=== PATIENT | female | born 1970 | race Caucasian/White ===

== ENCOUNTER 2018-04-28 10:30 | Outpatient (RCR) | payer BC, SELFPAY ==
--- NOTE | 2018-04-19 15:00 | PTTR_ITS ---
DATE: April 19, 2018 SUBJECTIVE: Mita reports that her symptoms come and go. She can not seem to find an aggravator. She reports that a lot of walking does seem to bother. She notes that she went to [employer] last week and by the end of the day she was hobbling. She has been trying to stay compliant with her stretches and HEP however leaves it to the end of day and sometimes just doesn't get it in. OBJECTIVE: Manual therapy: ([id number]). Soft tissue stretching of the right hamstring, ITB , piriformis. Soft tissue mobilization throughout the lateral ITB distal to proximal. CFM to the greater trochanter. TPR to the piriformis and glut med in right side lying position. Good symptom reduction post session. Reviewed home exercise program to ensure proper technique. Also emphasized importance of daily stretching and holding each stretch up to a minute. Recommended use of a foam roller for self mobilization or a rolling pin. Declined need of modality post session. Will reassess one time next week. Will continue with manual mobilization and continue progression of stabilization within symptom allowance. Utilize modalities as needed for pain reduction. Direct treatment time: 30 minutes Total treatment time: 30 minutes
--- NOTE | 2018-04-28 10:30 | PTTR_ITS ---
DATE: April 28, 2018 SUBJECTIVE: Mita reports that she continues to have her ups and downs. She notes that at times she has no irritation at all and others it bothers her so much that she is limping. Has been holding her stretches longer. She has been doing more self massage as recommended at last session. She remains compliant with her HEP and overall feels that she is improving just can't wait for it to be gone. OBJECTIVE: Manual therapy: ([id number]).Soft tissue stretching to the right ITB,piriformis, SKC, and hamstring, STM throughout the right proximal ITB, TFL and posterior capsule of the right hip with TPR to the glut med and piriformis. CFM over the greater trochanter. Reviewed HEP along with continued self mobilization techniques. Recommended monitoring sitting position to avoid constant stretch or irritation to the lateral hip. KT tape provided to the ITB I strip fashion. Will monitor her response to this. If no benefit will try the star fashion over the greater trochanter. Also issued some samples of Biofreeze to trial. Will continue with strong HEP. Reassess in 1 week. Continue with manual mobilization and modalities as needed. Declined need of modality post session. Direct treatment time: 30 minutes Total treatment time: 30 minutes
== END 2018-04-28 23:59 | disposition home or self-care (01) ==
LOC: PT 10:30
PROVIDERS: PCP Family Medicine; Referring Provider Family Medicine; Visit Provider Family Medicine
DX: M70.61 Trochanteric bursitis, right hip (principal)
CPT/HCPCS: 97140

== ENCOUNTER 2021-10-04 12:52 | Inpatient (IN) | payer BC, SELFPAY ==
[2021-10-04 12:56] VITALS: BP 142/73; PULSE 65; RESP 18; TEMP 36.3; O2SAT 100
--- NOTE | 2021-10-04 13:16 | W.ED.GENAD ---
Discharge Plan Disposition Patient Disposition: [facility] INPATIENT Condition: Serious Discharge Details Chief Complaint: Abd Prob Clinical Impression: Acute gallstone pancreatitis Primary Care Provider: Linette Kemp ED Provider: Donal Calabrese Home Meds and New Rx's Prescriptions: No Action epinephrine [EpiPen 2-Cornell] 0.3 mg/0.3 mL auto-injector 0.3 mg IM ONCE Qty: 1 RF: 2 vitamin B complex 1 EACH capsule 1 cap PO DAILY RF: 0 calcium carbonate-vitamin D3 [Calcium 500 With D] 1 EACH tablet 2 tab PO DAILY RF: 0 acidophilus-pectin, citrus [Acidophilus Probiotic] 1 EACH capsule 1 cap PO DAILY RF: 0 Medical Decision Making This is a 50-year-old female, denies significant past medical history, reports intermittent abdominal pain and nausea for the past couple of weeks and noticed itching and jaundice over the past 24 hours. Clinically she does appear jaundiced but is otherwise well-appearing. Abdomen is soft, currently nontender. She appears afebrile and hemodynamically stable. Plan is to obtain IV access, give IV fluid, obtain routine screening laboratory values including a lipase and acute panel and likely CT imaging of her abdomen pelvis with IV contrast. Differential includes but not excluded to biliary colic, acute cholecystitis, obstruction secondary to mass, gallstone pancreatitis. Laboratory values reveal no evidence of leukocytosis or anemia. Electrolytes are unremarkable, creatinine 0.7 with a GFR greater than 60. Total bili 8.8, AST 159 ALT 429 alk phosphatase 453, lipase 6727. Urine with large bilirubin, 10-20 white cells but moderate epithelials, likely contamination. Elevated LFTs and bilirubin. Awaiting CT imaging with IV contrast of her abdomen and pelvis. CT imaging reveals cholelithiasis, multiple tiny noncalcified intraluminal gallstones noted. CBD diameter of 1.3, recommending ERCP. Incidentally, recommending MRI of the right acetabulum as well. Case discussed with our surgeon, Dr. Ferrell, and because the patient requires an ERCP, recommend transfer to a higher level of care. I was able to speak with [facility] at 1443 and unfortunately they are at capacity, cannot take any admissions. They did say that a down and back ERCP tomorrow potentially could be arranged if the patient was admitted to our facility. I then reached out to [facility] at 1520, I was told that given she is hemodynamically stable, transfer is highly unlikely as they are only taking emergent cases. They did transfer me to their surgical team; however, they stated that this would be a hospitalist transfer and not to the surgical team Given [facility] has no capacity and [facility] tells me that all nonemergent transfers are extremely unlikely, I once again reached out to our surgical team, Dr. Ferrell. Given the circumstances and inability to transfer appropriately, she is agreeable to admitting to our facility under her services. She recommends initiating IV Rocephin and Flagyl. Plan is to obtain ultrasound tomorrow morning for further diagnostics, and then likely transfer or down and back if necessary tomorrow. She will place admission orders. I later received a phone call from the hospitalist service at [facility] at 1540, Dr. Ellison, she does confirm that there are no beds available today and that a down and back procedure for ERCP could potentially be set up for tomorrow. Work-up and disposition discussed with patient. She is agreeable to admission to our facility understanding that ultrasound will likely be obtained tomorrow morning and then she will likely require a transfer or down a back procedure. This documentation was generated using [employer] dictation system, please disregard any oddities of phrase or misspellings. Medical Records Medical records reviewed: Yes I reviewed the patient's medical records. Imaging Data Radiologic Study: Attestation: I personally reviewed and interpreted this imaging study as follows: Imaging: CT Scan Radiologist's impression: Exam(s) a CT:CT abdomen & pelvis w Exam(s) CT ABDOMEN PELVIS W EXAM: CT ABDOMEN PELVIS W CLINICAL HISTORY: abd pain, jaundiced, elevatd lfts and bili of 8.8. TECHNIQUE: Imaging Protocol: Axial computed tomography images with coronal and sagittal reformatted images were created and reviewed CONTRAST MATERIAL: Intravenous: Omnipaque 100cc Oral: None COMPARISON: No exams were available for comparison FINDINGS: VISUALIZED LUNG BASES: No nodules nor pleural effusions evident. ABDOMEN: There is no ascites. LIVER: There are no focal hepatic lesions but there are dilated intrahepatic ducts in both right and left hepatic lobes. CBD is also dilated to diameter of 1.3 cm. GALLBLADDER/BILIARY: Multiple tiny noncalcified gallstones are noted in the gallbladder lumen and the gallbladder is distended to 10 cm by 3.7 cm by 3.6 cm. There is minimal gallbladder wall edema. No prominent pericholecystic fluid. PANCREAS: Pancreatic duct is not dilated. Very subtle hypodensity at the junction of pancreatic head and duodenum which is probably inflammatory; less likely mass at this level SPLEEN: Spleen is not enlarged. No obvious intrasplenic lesions. Splenic and portal veins are patent. ADRENALS: There are no significant adrenal masses. KIDNEYS:No cysts evident. No solid renal masses. No calculi nor hydronephrosis.. ABDOMINAL AORTA: Abdominal aorta is not enlarged. LYMPH NODES:There is no retroperitoneal nor paraaortic adenopathy. ABDOMINAL WALL: No evidence of significant anterior abdominal wall nor inguinal hernia. GI: There is no evidence of bowel obstruction, free air, nor abscess. PELVIS: GI: No evidence of appendicitis.No evidence of sigmoid diverticulitis. LYMPH NODES: There is no intrapelvic nor inguinal adenopathy. REPRODUCTIVE: Uterus is retroverted. Somewhat heterogeneous which may reflect the presence of fibroids. No abnormal adnexal masses. No free fluid in the pelvis URINARY BLADDER: No calculi nor obvious masses evident OSSEOUS: There is a bone lesion in the superior acetabulum of the right hip which measures 2 by 1.7 cm by 3 cm AP and associated with significant thinning of the cortex. Somewhat unlikely that this would be a typical degenerative subarticular cyst given its size and the fact that there is minimal if any significant degenerative change in the ipsilateral hip joint. Follow-up MRI recommended. IMPRESSION: 1. Cholelithiasis. Multiple tiny noncalcified intraluminal gallstones noted. The gallbladder as well as the entire biliary tree is dilated, both intra and extrahepatic with the CBD exhibiting diameter of 1.3 cm. There are probably tiny calculi in the lower CBD causing the obstruction, however, these are not radiopaque/calcified. ERCP recommended. 2. Incidental finding in the right hip acetabulum as described above. This require follow-up, including MRI. Lab Data Lab results reviewed: Yes I reviewed the patient's lab results. Labs: Laboratory Tests Range/Units 10/04/21 10/04/21 10/04/21 13:15 13:15 13:23 WBC (4.4-10.8) 10^3/uL 8.97 RBC (3.93-5.22) 10^6/uL 4.04 Hgb (11.2-15.7) g/dL 12.0 Hct (36.0-46.0) % 36.9 MCV (80-95) fL 91.3 MCH (27.0-33.0) pg 29.7 MCHC (32.0-36.0) % 32.5 RDW (11.7-14.6) % 13.1 Plt Count (130-400) 10^3/uL 336 MPV (8.0-11.0) fL 10.5 Immature Gran % 0.3 Neutrophils % 72.7 Lymphocytes % 17.3 Monocytes % 7.4 Eosinophils % 1.4 Basophils % 0.9 Nucleated RBC % % 0 Absolute Neutrophils (1.2-6.7) 10^3/uL 6.52 Absolute Lymphocytes (1.2-3.4) 10^3/uL 1.55 Absolute Monocytes (0.1-0.8) 10^3/uL 0.66 Absolute Eosinophils (0.0-0.7) 10^3/uL 0.13 Absolute Basophils (0.0-0.2) 10^3/uL 0.08 Sodium (136-145) mmol/L 138 Potassium (3.5-5.1) mmol/L 3.5 Chloride (98-107) mmol/L 102 Carbon Dioxide (21.0-32.0) mmol/L 24.6 Anion Gap (3-11) mmol/L 11.4 H BUN (7-18) mg/dL 13 Creatinine (0.55-1.02) mg/dL 0.7 Estimated GFR/1.73 m2 (mL/min/1.73m2) >= 60.00 Glucose (74-106) mg/dL 120 H Calcium (8.5-10.1) mg/dL 8.8 Total Bilirubin (0.2-1.0) mg/dL 8.8 H AST (15-37) U/L 159 H ALT (14-59) U/L 429 H Alkaline Phosphatase (46-116) U/L 453 H Total Protein (6.4-8.2) g/dL 7.1 Albumin (3.4-5.0) g/dL 3.6 Lipase (73-393) U/L 6727 H Urine Color (Yellow) Dark Yellow Urine Clarity (Clear) Clear Urine pH (5-8) 6.0 Ur Specific Fitzgerald (1.005-1.025) 1.020 Urine Protein (Negative) mg/dL Negative Urine Ketones (Negative) mg/dL Negative Urine Blood (Negative) Negative Urine Nitrite (Negative) Negative Urine Bilirubin (Negative) Large H Urine Urobilinogen (Up TO 0.2) EU/dL 2.0 H Ur Leukocyte Esterase (Negative) Small H Urine RBC (0-2) HPF Negative Urine WBC (0-5) HPF 10-20 H Ur Epithelial Cells (Negative) HPF Moderate Urine Crystals (Negative) HPF Negative Urine Bacteria (Negative) HPF Rare Urine Casts (Negative) LPF Negative Urine Mucus (Negative) Negative Urine Other (Negative) Few Renal Ur Culture Indicated? No/Sq. Contamination Urine Glucose (Negative) mg/dL Negative COVID-19 Source Range/Units 10/04/21 14:46 WBC (4.4-10.8) 10^3/uL RBC (3.93-5.22) 10^6/uL Hgb (11.2-15.7) g/dL Hct (36.0-46.0) % MCV (80-95) fL MCH (27.0-33.0) pg MCHC (32.0-36.0) % RDW (11.7-14.6) % Plt Count (130-400) 10^3/uL MPV (8.0-11.0) fL Immature Gran % Neutrophils % Lymphocytes % Monocytes % Eosinophils % Basophils % Nucleated RBC % % Absolute Neutrophils (1.2-6.7) 10^3/uL Absolute Lymphocytes (1.2-3.4) 10^3/uL Absolute Monocytes (0.1-0.8) 10^3/uL Absolute Eosinophils (0.0-0.7) 10^3/uL Absolute Basophils (0.0-0.2) 10^3/uL Sodium (136-145) mmol/L Potassium (3.5-5.1) mmol/L Chloride (98-107) mmol/L Carbon Dioxide (21.0-32.0) mmol/L Anion Gap (3-11) mmol/L BUN (7-18) mg/dL Creatinine (0.55-1.02) mg/dL Estimated GFR/1.73 m2 (mL/min/1.73m2) Glucose (74-106) mg/dL Calcium (8.5-10.1) mg/dL Total Bilirubin (0.2-1.0) mg/dL AST (15-37) U/L ALT (14-59) U/L Alkaline Phosphatase (46-116) U/L Total Protein (6.4-8.2) g/dL Albumin (3.4-5.0) g/dL Lipase (73-393) U/L Urine Color (Yellow) Urine Clarity (Clear) Urine pH (5-8) Ur Specific Fitzgerald (1.005-1.025) Urine Protein (Negative) mg/dL Urine Ketones (Negative) mg/dL Urine Blood (Negative) Urine Nitrite (Negative) Urine Bilirubin (Negative) Urine Urobilinogen (Up TO 0.2) EU/dL Ur Leukocyte Esterase (Negative) Urine RBC (0-2) HPF Urine WBC (0-5) HPF Ur Epithelial Cells (Negative) HPF Urine Crystals (Negative) HPF Urine Bacteria (Negative) HPF Urine Casts (Negative) LPF Urine Mucus (Negative) Urine Other (Negative) Ur Culture Indicated? Urine Glucose (Negative) mg/dL COVID-19 Source Nasal/Nares HPI General Mode of arrival: ambulatory. Date/Time Provider Initiated Documentation: 10/04/21 12:53. Information obtained by: patient. HPI Narrative: This is a 50-year-old female who denies significant past medical history, presenting to the ER for intermittent 2-week epigastric discomfort, occasional nausea, but now over the past 12-24 hours she has noticed itching on her skin and looking in the mirror she believes her skin is jaundiced. She is 2 weeks ago her symptoms began after eating a grilled cheese sandwich but since then symptoms have really not been made worse or better with eating. She has used [id number] omeprazole because her stomach feels sour and she feels as though this has made her symptoms somewhat improved. She currently denies any pain or nausea but tells me that her abdomen just does feel right. She denies recent illness, trauma, headache, fever, chest pain, shortness of breath, vomiting, diarrhea or constipation, dysuria. She tells me that occasionally she has felt cold like she has the chills. She has taken a home Covid test and then a PCR test through a local healthcare facility, both have been negative. She tells me that she is fully vaccinated against COVID Related Data Home Medications Medication Instructions Recorded Confirmed acidophilus-pectin, citrus 1 cap PO DAILY 12/13/12 10/04/21 [Acidophilus Probiotic Capsule] calcium carbonate-vitamin D3 2 tab PO DAILY 12/13/12 10/04/21 [Calcium 500 + Vit D 400 Tablet] vitamin B complex 1 cap PO DAILY 12/13/12 10/04/21 epinephrine 0.3 mg/0.3 mL 0.3 mg IM ONCE #1 pack 04/09/21 10/04/21 injection, auto-injector Previous Rx's Medication Instructions Recorded epinephrine 0.3 mg/0.3 mL 0.3 mg IM ONCE #1 pack 04/09/21 injection, auto-injector Allergies Allergy/AdvReac Type Severity Reaction Status Date / Time Tetracyclines Allergy Mild SKIN RASH Unverified 10/04/21 13:02 YELLOW HORNET VENOM Allergy Severe Uncoded 10/04/21 13:02 General Stated Complaint: Abd Prob JAVID: 3 Review of Systems Constitutional Constitutional: Denies fatigue, Denies fever(s) and Denies headache(s) Eyes Eyes: Denies other (Denies scleral icterus) ENT Ears, Nose, Mouth, and Throat: Denies headache(s) Cardiovascular Cardiovascular: Denies chest pain and Denies dyspnea Respiratory Respiratory: Denies cough and Denies dyspnea Gastrointestinal Gastrointestinal: Reports abdominal pain, Denies constipation, Denies diarrhea, Reports nausea and Denies vomiting Genitourinary Genitourinary: Denies dysuria Musculoskeletal Musculoskeletal: Denies back pain Integumentary/Breasts Skin/Breast: Reports pruritus, Denies rash and Reports jaundice Neurologic Neurologic: Denies headache(s) Endocrine Endocrine: Denies fatigue Hematologic/Lymphatic Hematologic/Lymphatic: Denies easy bleeding and Denies easy bruising PFSH All Active Problems (Updated 10/04/21 @ 15:41 by JACQUELINE Parra) Acute gallstone pancreatitis (Acute) Fatigue (Acute) Status post tonsillectomy and adenoidectomy (Acute) Iliotibial band syndrome of right side (Acute) Greater trochanteric bursitis of right hip (Acute) Surgical History Tonsillectomy and adenoidectomy (~1977) Family History Mother Essential hypertension Hodgkin's disease Father Essential hypertension Sister Essential hypertension Asthma Grandfather Essential hypertension Heart disease Hyperlipidemia Grandfather Stroke Grandmother Stroke Grandmother Diabetes Essential hypertension Heart disease Stroke Son No problems noted. Daughter No problems noted. FAMILY HISTORY Stroke Social History Smoking/Tobacco Use Status: Never Second Hand Exposure: Yes Smoking risk assessment performed?: Yes Alcohol Intake: never Drug use: Never Substance use type: does not use Do you feel safe at home: Yes Do you feel safe in your relationship?: Yes Exam Const General: cooperative, healthy appearing, comfortable and no acute distress Orientation: alert, awake and oriented x3 HENMT Head: normal to inspection, normocephalic and atraumatic Face and sinus: normal facial exam Mouth: moist mucous membranes Eyes Alignment and Position: alignment normal Periorbital: periorbital findings normal Eyelids: eyelids normal Conjunctivae: conjunctivae normal Sclera: scleral abnormality bilaterally other (Mild scleral icterus) Cornea: corneas normal Pupils: PERRL EOM: EOM intact bilaterally Direct ophthalmoscopy: normal light reflex Neck Neck: normal visual inspection, full ROM, trachea midline and supple Resp Effort & Inspection: normal respiratory effort and able to speak in complete sentences Auscultation: clear to auscultation bilaterally Cardio Rate: regular rate Rhythm: regular rhythm GI Inspection: normal to inspection Palpation: soft, not firm, no guarding, no pulsatile masses and nontender Auscultation: normal bowel sounds Back/Spine/Pelvis Back: No back tenderness Skin General skin exam: jaundice Neuro General: patient alert, patient awake, patient oriented x3, moves all extremities and no focal motor deficits Cognition: normal cognition Speech: speech normal Gait: normal gait Motor: muscle tone normal throughout Sensory Exam: no sensory deficits noted Extrem General: normal to inspection, full ROM and capillary refill normal Psych Appearance: grossly normal Mental Status: mental status grossly normal Course Vital Signs Vital signs: Vital Signs Temperature 36.3 C L 10/04/21 12:56 Pulse 65 10/04/21 12:56 Respiratory Rate 18 10/04/21 12:56 Blood Pressure 142/73 H 10/04/21 12:56 Pulse Oximetry 100 10/04/21 12:56 Temperature 36.3 C L 10/04/21 12:56 Pulse 65 02/22 12:56 Respiratory Rate 18 10/04/21 12:56 Respiratory Effort Non-Labored 10/04/21 13:01 Blood Pressure 142/73 H 10/04/21 12:56 Blood Pressure Position Sitting 10/04/21 12:56 Pulse Oximetry 100 10/04/21 12:56 Oxygen Delivery Method Room Air 10/04/21 12:56 Oxygen Flow Rate 0 10/04/21 12:56 Pain Level 4 10/04/21 13:07 Critical Care Time Critical Care Time Critical Care Time: Yes Total Critical Care Time: 35 Attestation: Upon my evaluation, this patient had a high probability of clinically significant, life-threatening deterioration due to their current medical conditions, which required my direct attention, intervention, and personal management. I have personally provided greater than 30 minutes of critical care time exclusive of the time spend on separately billable procedures. Time includes obtaining a history, examining the patient, pulse oximetry, review of laboratory data, radiology results, discussion with consultants, arranging urgent treatment with development of a management plan, evaluation of patient's response to treatment, and monitoring for potential decompensation. Interventions were performed as documented above.
[2021-10-04 13:27] LABS: Abs Immature Grans 0.03 10^3/uL (0.0-0.06); Absolute Basophil Count 0.08 10^3/uL (0.0-0.2); Absolute Eosinophil Count 0.13 10^3/uL (0.0-0.7); Absolute Lymphocyte Count 1.55 10^3/uL (1.2-3.4); Absolute Monocyte Count 0.66 10^3/uL (0.1-0.8); Absolute Neutrophil Count 6.52 10^3/uL (1.2-6.7); Basophils % 0.9; Eosinophils % 1.4; HCT 36.9 % (36.0-46.0); Immature Grans % 0.3; Lymphocytes % 17.3; MCH 29.7 pg (27.0-33.0); MCHC 32.5 % (32.0-36.0); MCV 91.3 fL (80-95); MPV 10.5 fL (8.0-11.0); Monocytes % 7.4; Neutrophils % 72.7; Nucleated RBC 0 %; Platelet Count 336 10^3/uL (130-400); RBC 4.04 10^6/uL (3.93-5.22); RDW 13.1 % (11.7-14.6); RDW-SD 43.7 fL; WBC 8.97 10^3/uL (4.4-10.8)
[2021-10-04 13:30] LABS: Bilirubin Large (Negative); Blood Negative (Negative); Clarity Clear (Clear); Glucose Negative (Negative); Ketones Negative (Negative); Leukocyte Esterase Small (Negative); Nitrite Negative (Negative)
[2021-10-04 13:44] LABS: ALT 429 U/L (14-59); AST 159 U/L (15-37); Albumin 3.6 g/dL (3.4-5.0); Alkaline Phosphatase 453 U/L (46-116); Anion Gap 11.4 mmol/L (3-11); BUN 13 mg/dL (7-18); Bilirubin, Total 8.8 mg/dL (0.2-1.0); CO2 24.6 mmol/L (21.0-32.0); CREATININE 0.7 mg/dL (0.55-1.02); Calcium 8.8 mg/dL (8.5-10.1); Chloride 102 mmol/L (98-107); Glucose 120 mg/dL (74-106); Potassium 3.5 mmol/L (3.5-5.1); Sodium 138 mmol/L (136-145); Total Protein 7.1 g/dL (6.4-8.2)
--- NOTE | 2021-10-04 13:45 | DI.CT_ITS ---
Exam(s) CT ABDOMEN PELVIS W EXAM: CT ABDOMEN PELVIS W CLINICAL HISTORY: abd pain, jaundiced, elevatd lfts and bili of 8.8. TECHNIQUE: Imaging Protocol: Axial computed tomography images with coronal and sagittal reformatted images were created and reviewed CONTRAST MATERIAL: Intravenous: Omnipaque 100cc Oral: None COMPARISON: No exams were available for comparison FINDINGS: VISUALIZED LUNG BASES: No nodules nor pleural effusions evident. ABDOMEN: There is no ascites. LIVER: There are no focal hepatic lesions but there are dilated intrahepatic ducts in both right and left hepatic lobes. CBD is also dilated to diameter of 1.3 cm. GALLBLADDER/BILIARY: Multiple tiny noncalcified gallstones are noted in the gallbladder lumen and the gallbladder is distended to 10 cm by 3.7 cm by 3.6 cm. There is minimal gallbladder wall edema. No prominent pericholecystic fluid. PANCREAS: Pancreatic duct is not dilated. Very subtle hypodensity at the junction of pancreatic head and duodenum which is probably inflammatory; less likely mass at this level SPLEEN: Spleen is not enlarged. No obvious intrasplenic lesions. Splenic and portal veins are paten t. ADRENALS: There are no significant adrenal masses. KIDNEYS:No cysts evident. No solid renal masses. No calculi nor hydronephrosis.. ABDOMINAL AORTA: Abdominal aorta is not enlarged. LYMPH NODES:There is no retroperitoneal nor paraaortic adenopathy. ABDOMINAL WALL: No evidence of significant anterior abdominal wall nor inguinal hernia. GI: There is no evidence of bowel obstruction, free air, nor abscess. PELVIS: GI: No evidence of appendicitis.No evidence of sigmoid diverticulitis. LYMPH NODES: There is no intrapelvic nor inguinal adenopathy. REPRODUCTIVE: Uterus is retroverted. Somewhat heterogeneous which may reflect the presence of fibroi ds. No abnormal adnexal masses. No free fluid in the pelvis URINARY BLADDER: No calculi nor obvious masses evident OSSEOUS: There is a bone lesion in the superior acetabulum of the right hip which measures 2 by 1.7 c m by 3 cm AP and associated with significant thinning of the cortex. Somewhat unlikely that this wou ld be a typical degenerative subarticular cyst given its size and the fact that there is minimal if a ny significant degenerative change in the ipsilateral hip joint. Follow-up MRI recommended. IMPRESSION: 1. Cholelithiasis. Multiple tiny noncalcified intraluminal gallstones noted. The gallbladder as wel l as the entire biliary tree is dilated, both intra and extrahepatic with the CBD exhibiting diameter of 1.3 cm. There are probably tiny calculi in the lower CBD causing the obstruction, however, these are not radiopaque/calcified. ERCP recommended. 2. Incidental finding in the right hip acetabulum as described above. This require follow-up, includ ing MRI. First read by [facility] Discussed by myself with ER provider Tuesday10/04/2021 at 3 p.m. 4. RADIATION DOSE DELIVERED: 820.46mGy.cm Total DLP DATA REPOSITORY: All CT scans at this facility are submitted to the National Radiology Data Registry (NRDR) Dose Index Registry (DIR) with the [employer] (ACR). RADIATION OPTIMIZATION: All CT scans at this facility use at least one of these dose optimization te chniques: automated exposure control; mA and/or kV adjustment per patient size (includes targeted exa ms where dose is matched to clinical indication); or iterative reconstruction.
[2021-10-04 13:52] LABS: Epithelial Cells Moderate HPF (Negative); RBC Negative HPF (0-2)
[2021-10-04 13:53] LABS: Bacteria Rare HPF (Negative); C & S Indicated? No/Sq. Contamination; Casts Negative LPF (Negative); Crystals Negative HPF (Negative); Mucus Negative (Negative); Other Cells Few Renal (Negative)
[2021-10-04 13:57] LABS: Lipase 6727 U/L (73-393)
[2021-10-04] MEDS: Normal Saline Flush 10 ML SYR IVP ×2 (14:12→20:00)
[2021-10-04] MEDS: Omnipaque 350 MG/ML 100 ML BTL IJ (14:12)
--- NOTE | 2021-10-04 14:22 | DI.VRAD_ITS ---
PROCEDURE INFORMATION: Exam: CT Abdomen And Pelvis With Contrast Exam date and time: 10/04/2021 1:51 PM Age: 50 years old Clinical indication: Other: Abd pain, jaundiced, elevatd lfts and bili of 8.8 TECHNIQUE: Imaging protocol: Computed tomography of the abdomen and pelvis with contrast. Contrast material: OMNIPAQUE 350; Contrast volume: 100 ml; Contrast route: INTRAVENOUS (IV); COMPARISON: No relevant prior studies available. FINDINGS: Liver: See Gallbladder and bile ducts finding. Gallbladder and bile ducts: Gallstones. The gallbladder wall appears slightly thickened and hyperemic. There is intrahepatic biliary ductal dilatation. New lines the extrahepatic common duct appears prominent. Pancreas: Pancreatic duct upper limits of normal. Spleen: Normal. No splenomegaly. Adrenal glands: Normal. No mass. Kidneys and ureters: Normal. No hydronephrosis. Stomach and bowel: Unremarkable. No obstruction. No mucosal thickening. Appendix: No evidence of appendicitis. Intraperitoneal space: Unremarkable. No free air. No significant fluid collection. Vasculature: Unremarkable. No abdominal aortic aneurysm. Lymph nodes: Unremarkable. No enlarged lymph nodes. Urinary bladder: Unremarkable as visualized. Reproductive: Unremarkable as visualized. Bones/joints: Unremarkable. No acute fracture. Soft tissues: Unremarkable. Other findings: Moderate fecal retention pattern. Mixed attenuation lucency above the right acetabulum, possible para synovial cyst or lipoma. IMPRESSION: Gallbladder and biliary disease. Recommend sonography. Dictated and Authenticated by: Milka Galvez MD. Ordering:TAMMY Mansfield MD
[2021-10-04 14:55] LABS: Source Nasal/Nares
[2021-10-04] MEDS: cefTRIAXone 1 GM/50 ML BAG IVPB (15:20)
[2021-10-04] MEDS: metroNIDAZOLE 500 MG/100 ML BAG 100 MG IVPB (15:53)
[2021-10-04 16:27] VITALS: BP 111/64; PULSE 61; RESP 16; TEMP 36.3; O2SAT 100
[2021-10-04 16:42] VITALS: BP 121/80; PULSE 75; RESP 18; TEMP 37.6; O2SAT 100
[2021-10-04] MEDS: Lactated Ringers 1,000 ML 125 ML IV (16:54)
[2021-10-04] MEDS: Pantoprazole 40 MG VIAL IVP (18:04)
--- NOTE | 2021-10-04 18:06 | HPE_ITS ---
Date of service: 10/04/21 Time of Service: 19:11 Assessment and Plan Assessment and plan (1) Acute gallstone pancreatitis: Status: Acute Assessment and plan: -IV fluids, IV antibiotics Rocephin/Flagyl initiated in the ER -[place] [facility] [place] -Will obtain further imaging studies in AM, US and MRCP ordered -Re-consult GI once imaging done to re-evaluate for ERCP, rule out choledocolithiasis vs possible malignancy -AM labs ordered, will continue to trend lipase, LFT's, bilirubin (2) Hyperbilirubinemia: Status: Acute (3) Painless jaundice: Status: Acute History of Present Illness Narrative: 50 year old female who was in her usual state of health up until 2 weeks ago when she developed epigastric pain radiating into her back. She reports a prior gallbladder flare up several years ago but has not had any issues until recently. She came to the ER today because she woke up with jaundice. She reports resolution of pain but now has been suffering from constant puritis for the last week. She denies fever and chills, but reports anorexia x2 weeks. Laboratory studies revealed a bilirubin of 8.8, elevated LFT's and lipase. CT scan revealed hepatobiliary pathology with dilated intra and extrahepatic bile ducts, US is not available. [place] [facility] [place] [facility] was attempted but unfortunately both hospitals are at capacity. Patient was accepted for admission, labs will be repeated in the morning as well as US and MRCP to better determine etiology of hepatobiliary pathology. PFSH All Active Problems (Updated 10/04/21 @ 20:12 by Tammie Ferrell DO) Painless jaundice (Acute) Hyperbilirubinemia (Acute) Acute gallstone pancreatitis (Acute) Fatigue (Acute) Status post tonsillectomy and adenoidectomy (Acute) Iliotibial band syndrome of right side (Acute) Greater trochanteric bursitis of right hip (Acute) Surgical History Tonsillectomy and adenoidectomy (~1977) Family History Mother Essential hypertension Hodgkin's disease Father Essential hypertension Sister Essential hypertension Asthma Grandfather Essential hypertension Heart disease Hyperlipidemia Grandfather Stroke Grandmother Stroke Grandmother Diabetes Essential hypertension Heart disease Stroke Son No problems noted. Daughter No problems noted. FAMILY HISTORY Stroke Social History Smoking/Tobacco Use Status: Never Second Hand Exposure: Yes Smoking risk assessment performed?: Yes Alcohol Intake: never Drug use: Never Substance use type: does not use Do you feel safe at home: Yes Do you feel safe in your relationship?: Yes Meds Allergies and Home Medications Allergies Allergy/AdvReac Type Severity Reaction Status Date / Time Tetracyclines Allergy Mild SKIN RASH Unverified 10/04/21 13:02 YELLOW HORNET VENOM Allergy Severe Uncoded 10/04/21 13:02 Home Medications Medication Instructions Recorded Confirmed Type acidophilus-pectin, citrus 1 cap PO DAILY 12/13/12 10/04/21 History [Acidophilus Probiotic Capsule] calcium carbonate-vitamin D3 2 tab PO DAILY 12/13/12 10/04/21 History [Calcium 500 + Vit D 400 Tablet] vitamin B complex 1 cap PO DAILY 12/13/12 10/04/21 History epinephrine 0.3 mg/0.3 mL 0.3 mg IM ONCE #1 pack 04/09/21 10/04/21 Rx injection, auto-injector Exam Const General: cooperative, healthy appearing, comfortable and no acute distress HENAK Head: normal to inspection, normocephalic and atraumatic Eyes Periorbital: periorbital findings normal Eyelids: eyelids normal Sclera: scleral abnormality (icterus) bilaterally EOM: EOM intact bilaterally Neck Neck: normal visual inspection Resp Effort & Inspection: normal respiratory effort, no audible wheezes and no respiratory distress Cardio Rate: regular rate Rhythm: regular rhythm GI Inspection: normal to inspection and non-distended Palpation: soft, not firm and nontender Skin General skin exam: no rashes or lesions noted and jaundice Neuro General: patient alert, patient awake and patient oriented x3 Extrem General: normal to inspection Psych Appearance: grossly normal Mental Status: mental status grossly normal Speech and Movement: speech and movement normal Mood: congruent mood Affect: normal affect Attitude: cooperative Thought Process: normal Thought Content: normal Results Labs Result diagrams: 10/04/21 13:15 10/04/21 13:15 Labs: Laboratory Results - last 24 hr 10/04/21 10/04/21 10/04/21 13:15 13:15 13:23 WBC 8.97 RBC 4.04 Hgb 12.0 Hct 36.9 MCV 91.3 MCH 29.7 MCHC 32.5 RDW 13.1 Plt Count 336 MPV 10.5 Immature Gran % 0.3 Neutrophils % 72.7 Lymphocytes % 17.3 Monocytes % 7.4 Eosinophils % 1.4 Basophils % 0.9 Nucleated RBC % 0 Absolute Neutrophils 6.52 Absolute Lymphocytes 1.55 Absolute Monocytes 0.66 Absolute Eosinophils 0.13 Absolute Basophils 0.08 Sodium 138 Potassium 3.5 Chloride 102 Carbon Dioxide 24.6 Anion Gap 11.4 H BUN 13 Creatinine 0.7 Estimated GFR/1.73 m2 >= 60.00 Glucose 120 H Calcium 8.8 Total Bilirubin 8.8 H AST 159 H ALT 429 H Alkaline Phosphatase 453 H Total Protein 7.1 Albumin 3.6 Lipase 6727 H Urine Color Dark Yellow Urine Clarity Clear Urine pH 6.0 Ur Specific [place] 1.020 Urine Protein Negative Urine Ketones Negative Urine Blood Negative Urine Nitrite Negative Urine Bilirubin Large H Urine Urobilinogen 2.0 H Ur Leukocyte Esterase Small H Urine RBC Negative Urine WBC 10-20 H Ur Epithelial Cells Moderate Urine Crystals Negative Urine Bacteria Rare Urine Casts Negative Urine Mucus Negative Urine Other Few Renal Ur Culture Indicated? No/Sq. Contamination Urine Glucose Negative COVID-19 Source 10/04/21 14:46 WBC RBC Hgb Hct MCV MCH MCHC RDW Plt Count MPV Immature Gran % Neutrophils % Lymphocytes % Monocytes % Eosinophils % Basophils % Nucleated RBC % Absolute Neutrophils Absolute Lymphocytes Absolute Monocytes Absolute Eosinophils Absolute Basophils Sodium Potassium Chloride Carbon Dioxide Anion Gap BUN Creatinine Estimated GFR/1.73 m2 Glucose Calcium Total Bilirubin AST ALT Alkaline Phosphatase Total Protein Albumin Lipase Urine Color Urine Clarity Urine pH Ur Specific [place] Urine Protein Urine Ketones Urine Blood Urine Nitrite Urine Bilirubin Urine Urobilinogen Ur Leukocyte Esterase Urine RBC Urine WBC Ur Epithelial Cells Urine Crystals Urine Bacteria Urine Casts Urine Mucus Urine Other Ur Culture Indicated? Urine Glucose COVID-19 Source Nasal/Nares Last Vital Signs Temp 99.7 F H 10/04/21 16:42 Pulse 75 10/04/21 16:42 Resp 18 10/04/21 16:42 BP 121/80 10/04/21 16:42 Pulse Ox 100 10/04/21 16:42
[2021-10-04] MEDS: diphenhydrAMINE 50 MG/ML VIAL 25 MG IVP (19:59)
[2021-10-04 23:00] VITALS: BP 105/66; PULSE 63; RESP 18; TEMP 36.5; O2SAT 98
--- NOTE | 2021-10-05 | DI.MRI_ITS ---
Exam(s) MR ABDOMEN WO EXAM: MR ABDOMEN WO CLINICAL HISTORY: Abnormal CT scan TECHNIQUE: Multiplanar multisequence MRI was performed with both pre and post contrast infused seque nces. Contrast injected sequences were performed following IV injection of cc of Dotarem. COMPARISON: CT CT ABDOMEN PELVIS W from 10/04/2021 FINDINGS: VISUALIZED LUNG BASES: No pleural effusions evident. There is no ascites evident. LIVER: There is dilatation of intrahepatic ducts in both right and left hepatic lobes. There is a fo teressa area of signal abnormality measuring 11 x 10 millimeters in the right hepatic lobe which may just be related to portal vein vessel branching. BILIARY/PANCREAS: There are multiple small gallstones filling the gallbladder lumen. The gallbladder is distended/ Courvoisier's fashion but without prominent gallbladder wall edema nor pericholecystic fluid. There are multiple small calculi also evident in the gallbladder neck and proximal cystic du ct. The CBD is dilated to 1.2 cm, down to the duodenal wall level. There is no obvious calculus wit hin the upper and lower CBD. Pancreatic duct diameter is upper normal-minimally prominent. There do es not appear to be a discernible mass in the pancreatic head (nor elsewhere in the pancreas). No ob vious mass in the duodenum at this level. SPLEEN: Spleen is not enlarged and there are no intrasplenic lesions.Scratch ADRENALS: There are no significant adrenal masses. KIDNEYS: No solid renal masses. No hydronephrosis.No cysts evident. ABDOMINAL AORTA: Not enlarged and there is no significant para-aortic adenopathy. ANTERIOR ABDOMINAL WALL/GI: There is no evidence of significant anterior abdominal wall hernia in the field of view of this study.Is no evidence of obvious bowel obstruction. OSSEOUS: There are no lytic osseous lesions in the field of view of this study. Incidental noted is a posterolateral left disc protrusion at what appears to be L3-4 level. IMPRESSION: 1. There is gross dilatation of the entire biliary tree, both intra and extrahepatic. Intrahepatic l obes are dilated in both the right and left hepatic lobes and the CBD is dilated to a diameter of 1.2 cm. There is also evidence of a Corvoisiers'-type gallbladder. Although the gallbladder and gallbl adder neck are filled with small stones, the gallbladder wall is not edematous and there are no obvio us culprit calculi evident in the lower CBD 2 obviously account for the significant dilatation of the biliary tree above this level. There is also no evidence of obvious mass in the pancreatic head. T herefore stricture (possibly malignant) at this level in the lower CBD is a concern, and ERCP is shivani mmended. 2. Other findings as above. DATA REPOSITORY:
--- NOTE | 2021-10-05 | DI.US_ITS ---
Exam(s) US ABDOMEN LIMITED EXAM: US ABDOMEN LIMITED CLINICAL HISTORY: R/O CHOLEDOCOLITHIASIS TECHNIQUE: Ultrasound abdomen performed using standard protocol. COMPARISON: CT scan performed yesterday was reviewed FINDINGS: This limited study was confined to the gallbladder and CBD. Yesterday's CT scan revealed significant dilatation of the biliary tree, both intra and extrahepatic. There is no ascites. GALLBLADDER/BILIARY: Ultrasound confirms the presence of multiple calculi in the gallbladder lumen. Gallbladder wall thickness is upper normal. Patient was not very tender over this area during scanni ng today. The common hepatic duct issignificantly dilated, measuring 13mm. CBD is also dilated with similar me asurement. There appears to be a subtle calculus in the lower CBD with similar appearance to those i n the gallbladder lumen PANCREAS: There is no evidence of obvious pancreatic mass nor dilatation of the pancreatic duct. Panc reas does not appear edematous and there is no peripancreatic fluid. IMPRESSION: 1. Cholelithiasis and choledocholithiasis. The entire CBD is dilated to diameter of 1.3 cm (13 mill imeters), similar to findings on yesterday's contrast infused CT scan. Although difficult to visuali ze, there appears to be a possible cyst calculus or small calculi in the lower CBD. 2. There is no obvious mass in the pancreatic head and the pancreatic duct diameter is within normal limits. 3. GI consultation for ERCP is recommended DATA REPOSITORY:
[2021-10-05 00:03] LABS: COVID-19 PCR Negative (Negative)
[2021-10-05] MEDS: metroNIDAZOLE 500 MG/100 ML BAG 100 MG IVPB ×3 (00:34→16:26)
[2021-10-05] MEDS: Lactated Ringers 1,000 ML 125 ML IV ×2 (00:34→22:04)
[2021-10-05 07:17] LABS: Abs Immature Grans 0.03 10^3/uL (0.0-0.06); Absolute Basophil Count 0.04 10^3/uL (0.0-0.2); Absolute Eosinophil Count 0.14 10^3/uL (0.0-0.7); Absolute Lymphocyte Count 1.19 10^3/uL (1.2-3.4); Absolute Neutrophil Count 6.48 10^3/uL (1.2-6.7); Basophils % 0.5; Eosinophils % 1.7; HCT 36.2 % (36.0-46.0); HGB 11.8 g/dL (11.2-15.7); Immature Grans % 0.4; Lymphocytes % 14.2; MCH 29.7 pg (27.0-33.0); MCHC 32.6 % (32.0-36.0); MCV 91.2 fL (80-95); MPV 10.9 fL (8.0-11.0); Neutrophils % 77.2; Nucleated RBC 0 %; Platelet Count 328 10^3/uL (130-400); RBC 3.97 10^6/uL (3.93-5.22); RDW 13.5 % (11.7-14.6); RDW-SD 45.3 fL; WBC 8.38 10^3/uL (4.4-10.8)
[2021-10-05 07:33] LABS: ALT 334 U/L (14-59); AST 102 U/L (15-37); Albumin 3.2 g/dL (3.4-5.0); Alkaline Phosphatase 441 U/L (46-116); Anion Gap 11.5 mmol/L (3-11); BUN 11 mg/dL (7-18); Bilirubin, Direct 9.1 mg/dL (0.0-0.2); Bilirubin, Total 11.8 mg/dL (0.2-1.0); CO2 23.5 mmol/L (21.0-32.0); CREATININE 0.6 mg/dL (0.55-1.02); Chloride 105 mmol/L (98-107); Glucose 99 mg/dL (74-106); Potassium 3.6 mmol/L (3.5-5.1); Sodium 140 mmol/L (136-145); Total Protein 6.6 g/dL (6.4-8.2)
[2021-10-05 07:34] LABS: Lipase 3990 U/L (73-393)
[2021-10-05 09:07] VITALS: BP 107/65; PULSE 67; RESP 18; TEMP 37.2; O2SAT 98
--- NOTE | 2021-10-05 09:41 | W.PM.PROGNOT ---
Date of Service Date of service: 10/05/21 Time of Service: 09:41 Assessment and Plan Assessment and plan (1) Acute gallstone pancreatitis: Status: Acute Assessment and plan: Awaiting MRCP which is scheduled for this morning NPO Continue IV fluids, IV antibiotics Rocephin/Flagyl initiated in the ER GI consulted at [facility] [place], unable to accommodate for transfer today Re-consult GI once imaging done to re-evaluate for ERCP, rule out choledocolithiasis vs possible malignancy Bilirubin even more elevated compared to yesterday at 11.8 (2) Hyperbilirubinemia: Status: Acute (3) Painless jaundice: Status: Acute Subjective Subjective Interval history since last seen: Patient reports that she is feeling okay this morning. She expresses that she is very hungry and eager to eat. She denies having any pain. Exam Const General: cooperative, comfortable and ill appearing Other: Jaundice Resp Effort & Inspection: normal respiratory effort, no audible wheezes and no cough GI Palpation: soft, no guarding, nontender and No ascites Auscultation: normal bowel sounds Objective Last Vital Signs Temp 37.2 C 10/05/21 09:07 Pulse 67 10/05/21 09:07 Resp 18 10/05/21 09:07 BP 107/65 10/05/21 09:07 Pulse Ox 98 10/05/21 09:07 Laboratory Results - last 24 hr 10/04/21 10/04/21 10/04/21 13:15 13:15 13:23 WBC 8.97 RBC 4.04 Hgb 12.0 Hct 36.9 MCV 91.3 MCH 29.7 MCHC 32.5 RDW 13.1 Plt Count 336 MPV 10.5 Immature Gran % 0.3 Neutrophils % 72.7 Lymphocytes % 17.3 Monocytes % 7.4 Eosinophils % 1.4 Basophils % 0.9 Nucleated RBC % 0 Absolute Neutrophils 6.52 Absolute Lymphocytes 1.55 Absolute Monocytes 0.66 Absolute Eosinophils 0.13 Absolute Basophils 0.08 Sodium 138 Potassium 3.5 Chloride 102 Carbon Dioxide 24.6 Anion Gap 11.4 H BUN 13 Creatinine 0.7 Estimated GFR/1.73 m2 >= 60.00 Glucose 120 H Calcium 8.8 Total Bilirubin 8.8 H Conjugated Bilirubin AST 159 H ALT 429 H Alkaline Phosphatase 453 H Total Protein 7.1 Albumin 3.6 Lipase 6727 H Urine Color Dark Yellow Urine Clarity Clear Urine pH 6.0 Ur Specific [place] 1.020 Urine Protein Negative Urine Ketones Negative Urine Blood Negative Urine Nitrite Negative Urine Bilirubin Large H Urine Urobilinogen 2.0 H Ur Leukocyte Esterase Small H Urine RBC Negative Urine WBC 10-20 H Ur Epithelial Cells Moderate Urine Crystals Negative Urine Bacteria Rare Urine Casts Negative Urine Mucus Negative Urine Other Few Renal Ur Culture Indicated? No/Sq. Contamination Urine Glucose Negative COVID-19 Source SARS-CoV-2 (PCR) 10/04/21 10/05/21 10/05/21 14:46 06:40 06:40 WBC 8.38 RBC 3.97 Hgb 11.8 Hct 36.2 MCV 91.2 MCH 29.7 MCHC 32.6 RDW 13.5 Plt Count 328 MPV 10.9 Immature Gran % 0.4 Neutrophils % 77.2 Lymphocytes % 14.2 Monocytes % 6.0 Eosinophils % 1.7 Basophils % 0.5 Nucleated RBC % 0 Absolute Neutrophils 6.48 Absolute Lymphocytes 1.19 L Absolute Monocytes 0.50 Absolute Eosinophils 0.14 Absolute Basophils 0.04 Sodium 140 Potassium 3.6 Chloride 105 Carbon Dioxide 23.5 Anion Gap 11.5 H BUN 11 Creatinine 0.6 Estimated GFR/1.73 m2 >= 60.00 Glucose 99 Calcium 9.0 Total Bilirubin 11.8 H Conjugated Bilirubin 9.1 H AST 102 H ALT 334 H Alkaline Phosphatase 441 H Total Protein 6.6 Albumin 3.2 L Lipase 3990 H Urine Color Urine Clarity Urine pH Ur Specific [place] Urine Protein Urine Ketones Urine Blood Urine Nitrite Urine Bilirubin Urine Urobilinogen Ur Leukocyte Esterase Urine RBC Urine WBC Ur Epithelial Cells Urine Crystals Urine Bacteria Urine Casts Urine Mucus Urine Other Ur Culture Indicated? Urine Glucose COVID-19 Source Nasal/Nares SARS-CoV-2 (PCR) Negative
--- NOTE | 2021-10-05 14:00 | PHA.REVIEW ---
Pharmacy Admission Review - Admission Clinical Review (Last Updated 10/04/21 @ 20:54 by Tammie Ferrell DO) Painless jaundice (Acute) Hyperbilirubinemia (Acute) Acute gallstone pancreatitis (Acute) Tetracyclines Allergy (Mild, Unverified 10/04/21 13:02) SKIN RASH YELLOW HORNET VENOM Allergy (Severe, Uncoded 10/04/21 13:02) Resuscitation Status Full Code Height 5 ft 5.5 in Weight 71.3 kg - Renal Dosing Renal Dosing: BUN 11 mg/dL (7-18) 10/05/21 06:40 Creatinine 0.6 mg/dL (0.55-1.02) 10/05/21 06:40 Medications needing adjustments: Reviewed (Crcl ~77.38 mL/min current meds okay) - Anticoagulation Anticoagulation: Hgb 11.8 g/dL (11.2-15.7) 10/05/21 06:40 Hct 36.2 % (36.0-46.0) 10/05/21 06:40 Plt Count 328 10^3/uL (130-400) 10/05/21 06:40 Creatinine 0.6 mg/dL (0.55-1.02) 10/05/21 06:40 DVT Prophylaxis: Reviewed Medications: Enoxaparin Therapeutic Anticoagulation: N/A - Opiate Usage Evaluate Pain Scale/Pains Meds: Reviewed (has PRN morphine ordered, pt has not used any) Scheduled Bowel Reg ordered if on Opiates?: No (will mention to provider) - Relevant Labs Sodium 140 mmol/L (136-145) 10/05/21 06:40 Potassium 3.6 mmol/L (3.5-5.1) 10/05/21 06:40 Chloride 105 mmol/L (98-107) 10/05/21 06:40 Electrolytes, C-Reactive P, ESR: Reviewed (AST-102 ALT-334 alkphos-441 total bilirubin 11.8) - DM Control DM Control: Glucose 99 mg/dL (74-106) 10/05/21 06:40 Insulin Dosing: N/A - Heart Failure/[place] EF%, JUNIE's, B-Blockers, Diuretics: N/A - BP Control BP Control: Blood Pressure 107/65 If elevated: N/A - Qtc Review If Elevated: N/A - IV to PO Switch IV Medications: Reviewed - Home Meds Home Med List reviewed: Reviewed Relevent Home Meds Not ordered & why?: epinephrine (PRN) - Current meds Current Medication Order Review: Intervened (Discontinued DI meds that had already been given and duplicate med orders) - Comments Comments/Follow Ups: Watch VS, LFTs labs and for med changes (IV to PO, possible need of BM meds). Antibiotic Activity - Pharmacy Antibiotic Review Pharmacy Antibiotic Activity: Reviewed, no change (ceftriaxone and metronidazole continue)
[2021-10-05 15:37] VITALS: BP 114/67; PULSE 70; RESP 18; TEMP 37.1; O2SAT 98
[2021-10-05] MEDS: Pantoprazole 40 MG VIAL IVP (15:59)
[2021-10-05] MEDS: Normal Saline Flush 10 ML SYR IVP (15:59)
[2021-10-05] MEDS: cefTRIAXone 1 GM/50 ML BAG IVPB (16:00)
--- NOTE | 2021-10-05 16:02 | PDOC.CMIN ---
- If Service Date Differs Date of service: 10/05/21 Time of Service: 16:02 Care Management Initial Assess REASON FOR HOSPITALIZATION:: Gallstone Pancreatitis PAST MEDICAL HISTORY/PAST SURGICAL HISTORY:: All Active Problems (Updated 10/04/21 @ 20:12 by Tammie Ferrell DO). Painless jaundice (Acute). Hyperbilirubinemia (Acute). Acute gallstone pancreatitis (Acute). Fatigue (Acute). Status post tonsillectomy and adenoidectomy (Acute). Iliotibial band syndrome of right side (Acute). Greater trochanteric bursitis of right hip (Acute). Surgical History . Tonsillectomy and adenoidectomy (~1977) PREVIOUS FUNCTIONAL STATUS/SOCIAL/FAMILY SUPPORTS:: Shu lives in [facility] with her [place] and her children. 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 She is independent at baseline and drives. CURRENT FUNCTIONAL STATUS:: Shu was sitting on the side of her bed when CM met with her. She was pleasant and easily engaged in conversation. Her NPO diet was advanced to clear liquids this evening. She is planning on having an ERCP in the morning. She has no needs at this time. ADVANCE DIRECTIVES:: None on file Has patient been provided with info about the portal/API?: Yes Did the patient sign up for the portal?: No CODE STATUS:: Full Code INSURANCE COVERAGE / FINANCIAL ISSUES:: [employer] CURRENT HOME/COMMUNITY SERVICES/EQUIPMENT:: None PRIMARY CARE PHYSICIAN:: [facility] PATIENT/FAMILY EDUCATION NEEDS:: Review discharge instructions, limitations and plan to follow up with community providers. ask me three. TRANSPORTATION:: via private vehicle with family. PLAN:: Shu is being followed by surgery. She remains on IV antibiotics and IV fluids. Her VS and labs are being closely monitored. She is planning on having an ERCP tomorrow. Anticipate Shu will discharge home when medically ready and follow up with community providers. She will transport with family.
[2021-10-05] MEDS: Mylanta Suspension 30 ML CUP PO (16:26)
[2021-10-05 23:22] VITALS: BP 113/67; PULSE 81; RESP 18; TEMP 36.5; O2SAT 99
[2021-10-06] MEDS: metroNIDAZOLE 500 MG/100 ML BAG 100 MG IVPB ×3 (00:10→23:28)
[2021-10-06] MEDS: Lactated Ringers 1,000 ML 125 ML IV (06:37)
[2021-10-06 06:40] LABS: Abs Immature Grans 0.08 10^3/uL (0.0-0.06); Absolute Basophil Count 0.05 10^3/uL (0.0-0.2); Absolute Eosinophil Count 0.03 10^3/uL (0.0-0.7); Absolute Lymphocyte Count 0.74 10^3/uL (1.2-3.4); Absolute Monocyte Count 0.68 10^3/uL (0.1-0.8); Absolute Neutrophil Count 11.59 10^3/uL (1.2-6.7); Basophils % 0.4; Eosinophils % 0.2; HCT 33.5 % (36.0-46.0); HGB 11.2 g/dL (11.2-15.7); Immature Grans % 0.6; Lymphocytes % 5.6; MCH 29.9 pg (27.0-33.0); MCHC 33.4 % (32.0-36.0); MCV 89.3 fL (80-95); MPV 10.5 fL (8.0-11.0); Monocytes % 5.2; Nucleated RBC 0 %; Platelet Count 311 10^3/uL (130-400); RBC 3.75 10^6/uL (3.93-5.22); RDW 13.7 % (11.7-14.6); RDW-SD 45.4 fL; WBC 13.17 10^3/uL (4.4-10.8)
[2021-10-06 06:53] LABS: ALT 266 U/L (14-59); AST 89 U/L (15-37); Albumin 2.8 g/dL (3.4-5.0); Alkaline Phosphatase 439 U/L (46-116); Anion Gap 9.2 mmol/L (3-11); BUN 11 mg/dL (7-18); CO2 23.8 mmol/L (21.0-32.0); CREATININE 0.5 mg/dL (0.55-1.02); Calcium 8.7 mg/dL (8.5-10.1); Chloride 103 mmol/L (98-107); Glucose 110 mg/dL (74-106); Magnesium 1.9 mg/dL (1.8-2.4); Potassium 4.2 mmol/L (3.5-5.1); Sodium 136 mmol/L (136-145)
[2021-10-06 07:06] LABS: Lipase 6990 U/L (73-393)
[2021-10-06 07:08] LABS: Bilirubin, Total 16.7 mg/dL (0.2-1.0)
--- NOTE | 2021-10-06 07:43 | PGE_ITS ---
Documented by User: JACQUELINE Griffin 10/06/21 07:53 Date of Service Date of service: 10/06/21 Time of Service: 07:43 Assessment and Plan Assessment and plan (1) Acute gallstone pancreatitis: Status: Acute Assessment and plan: Increased abdominal pain today, ordered IV tylenol and toradol Lipase increasing 6990 this morning Total bilirubin 16.7 this morning Patient is scheduled to go to [facility] [place] for ERCP later today NPO Continue IV fluids, IV antibiotics Rocephin/Flagyl initiated in the ER Assisted with trouble shooting fixing Aqua K heating pad to help with abdominal discomfort. Ortho has been consulted regarding question of lytic lesion of right hip on CT scan. MRI has been ordered. Patient is concerned that she will not be able to sit for an MRI today, given her increased abdominal discomfort. (2) Hyperbilirubinemia: Status: Acute (3) Painless jaundice: Status: Acute Subjective Subjective Interval history since last seen: Patient reports that she is not feeling well this morning. She states she is having stomach discomfort and is eager to have her procedure completed early this afternoon. She is requesting non-narcotic pain medication options. Exam Const General: cooperative, comfortable and in distress mild Orientation: alert and oriented x3 Other: Jaundice Resp Effort & Inspection: normal respiratory effort, no audible wheezes and no cough GI Palpation: soft, no guarding and tender Objective Last Vital Signs Temp 36.5 C 10/05/21 23:22 Pulse 81 10/05/21 23:22 Resp 18 10/05/21 23:22 BP 113/67 10/05/21 23:22 Pulse Ox 99 10/05/21 23:22 Laboratory Results - last 24 hr 10/06/21 10/06/21 06:23 06:23 WBC 13.17 H D RBC 3.75 L Hgb 11.2 Hct 33.5 L MCV 89.3 MCH 29.9 MCHC 33.4 RDW 13.7 Plt Count 311 MPV 10.5 Immature Gran % 0.6 Neutrophils % 88.0 Lymphocytes % 5.6 Monocytes % 5.2 Eosinophils % 0.2 Basophils % 0.4 Nucleated RBC % 0 Absolute Neutrophils 11.59 H Absolute Lymphocytes 0.74 L Absolute Monocytes 0.68 Absolute Eosinophils 0.03 Absolute Basophils 0.05 Sodium 136 Potassium 4.2 Chloride 103 Carbon Dioxide 23.8 Anion Gap 9.2 BUN 11 Creatinine 0.5 L Estimated GFR/1.73 m2 >= 60.00 Glucose 110 H Calcium 8.7 Magnesium 1.9 Total Bilirubin 16.7 H AST 89 H ALT 266 H Alkaline Phosphatase 439 H Total Protein 6.0 L Albumin 2.8 L Lipase 6990 H Documented by User: Milvia Basurto DO 10/06/21 15:56 Assessment and Plan Assessment and plan (1) Hyperbilirubinemia: Status: Acute Assessment and plan: agree w/ above. Pt is done for ERCP at [facility] [place] at this time. further recommendations pd on findgins of ERCP
[2021-10-06] MEDS: Ondansetron 4 MG/2 ML VIAL IVP (08:15)
[2021-10-06 08:19] VITALS: BP 107/72; PULSE 68; RESP 17; TEMP 36.9; O2SAT 98
--- NOTE | 2021-10-06 08:22 | CMPROGNOTE_ITS ---
- If Service Date Differs Date of service: 10/06/21 Time of Service: 08:22 Care Management Progress Note S/O: Mita [place] [facility] to have an ERCP and EUS. CM was unable to meet with patient today since she was out of the facility. CM will continue to follow. A: 50 year old female admitted to [facility] on 10/04/21 for Acute gallstone pancreatitis P: Shu is being followed by surgery. She had a down and [place] [facility] [place] for an ERCP/EUS. Anticipate Shu will discharge home when medically ready and follow up with community providers. She will transport with family.
[2021-10-06] MEDS: Ketorolac 30 MG/ML VIAL IVP (09:24)
[2021-10-06] MEDS: Normal Saline Flush 10 ML SYR IVP ×2 (09:24→21:33)
[2021-10-06 11:17] LABS: Hepatitis A Antibody IgM Negative (Negative); Hepatitis B Core Antibody Negative (Negative); Hepatitis B surface Ag Negative (Negative); Hepatitis C Ab w Rflx HCV PCR Negative (Negative)
[2021-10-06 21:42] VITALS: BP 102/65; PULSE 61; RESP 16; TEMP 36.8; O2SAT 98
--- NOTE | 2021-10-06 23:42 | NUR.NOTE ---
Kiki from [facility] [place] [place] called and gave report on Shu Pitts. Report success of ERCP and patient had stent placed in her gallbladder. She is to return for follow up 4-6 weeks for stent removal.
[2021-10-07] MEDS: Lactated Ringers 1,000 ML 125 ML IV (03:24)
[2021-10-07 07:04] VITALS: BP 110/67; PULSE 85; RESP 17; TEMP 36.6; O2SAT 99
[2021-10-07 07:14] LABS: Abs Immature Grans 0.08 10^3/uL (0.0-0.06); Absolute Basophil Count 0.02 10^3/uL (0.0-0.2); Absolute Lymphocyte Count 0.84 10^3/uL (1.2-3.4); Absolute Monocyte Count 0.64 10^3/uL (0.1-0.8); Absolute Neutrophil Count 10.24 10^3/uL (1.2-6.7); Basophils % 0.2; HCT 32.4 % (36.0-46.0); HGB 10.7 g/dL (11.2-15.7); Immature Grans % 0.7; Lymphocytes % 7.1; MCV 90.8 fL (80-95); MPV 10.8 fL (8.0-11.0); Monocytes % 5.4; Neutrophils % 86.6; Nucleated RBC 0 %; Platelet Count 349 10^3/uL (130-400); RBC 3.57 10^6/uL (3.93-5.22); RDW 13.9 % (11.7-14.6); RDW-SD 45.9 fL; WBC 11.82 10^3/uL (4.4-10.8)
[2021-10-07 07:36] LABS: Anion Gap 9.4 mmol/L (3-11); BUN 14 mg/dL (7-18); CO2 24.6 mmol/L (21.0-32.0); CREATININE 0.8 mg/dL (0.55-1.02); Chloride 104 mmol/L (98-107); Glucose 152 mg/dL (74-106); Sodium 138 mmol/L (136-145)
--- NOTE | 2021-10-07 07:39 | PGE_ITS ---
Date of Service Date of service: 10/07/21 Time of Service: 07:39 Assessment and Plan Assessment and plan (1) Acute gallstone pancreatitis: Status: Acute Assessment and plan: Patient under went ERCP yesterday at [facility] [place], which was remarkable for major papilla was bulging and impacted witha stone. Stones were completely removed by biliary sphincterotomy and balloon extraction. Post-sphincterotomy oozing was treated with balloon tamponade and then covered with metal stent placement. Recommendations included ERCP in 4-6 weeks to remove stent. Jaundice appears to be improving. NPO, awaiting morning labs. Denies any nausea, vomiting, fevers or pain Continue IV fluids, IV antibiotics Rocephin/Flagyl MRI of right hip later today Okay to shower. Once labs are available, if improving will advance diet this morning. (2) Hyperbilirubinemia: Status: Acute (3) Painless jaundice: Status: Acute Subjective Subjective Interval history since last seen: Patient reports she is feeling much better today. She states her abdominal pain has resolved. She is looking forward to showering and hopefully eating today. Exam Const General: cooperative, healthy appearing and comfortable Orientation: alert and oriented x3 Other: jaundice Resp Effort & Inspection: normal respiratory effort, no audible wheezes and no cough GI Inspection: normal to inspection Palpation: soft, no guarding and nontender Auscultation: normal bowel sounds Objective Last Vital Signs Temp 36.6 C 10/07/21 07:04 Pulse 85 10/07/21 07:04 Resp 17 10/07/21 07:04 BP 110/67 10/07/21 07:04 Pulse Ox 99 10/07/21 07:04 Laboratory Results - last 24 hr 10/04/21 10/07/21 13:15 06:55 WBC 11.82 H RBC 3.57 L Hgb 10.7 L Hct 32.4 L MCV 90.8 MCH 30.0 MCHC 33.0 RDW 13.9 Plt Count 349 MPV 10.8 Immature Gran % 0.7 Neutrophils % 86.6 Lymphocytes % 7.1 Monocytes % 5.4 Eosinophils % 0.0 Basophils % 0.2 Nucleated RBC % 0 Absolute Neutrophils 10.24 H Absolute Lymphocytes 0.84 L Absolute Monocytes 0.64 Absolute Eosinophils 0.00 Absolute Basophils 0.02 Hepatitis A IgM Ab Negative Hep Bs Antigen Negative Hep B Core Total Ab Negative Hepatitis C Antibody Negative
[2021-10-07 07:51] LABS: Lipase 3767 U/L (73-393)
[2021-10-07] MEDS: metroNIDAZOLE 500 MG/100 ML BAG 100 MG IVPB ×3 (08:04→23:39)
--- NOTE | 2021-10-07 12:37 | PDOC.CMPRO ---
- If Service Date Differs Date of service: 10/07/21 Time of Service: 12:37 Care Management Progress Note S/O: Mita was sitting up in bed when CM met with her. She was pleasant and easily engaged in conversation. Her skin is jaundice, but looks to be improving. She [place] [facility] and biliary stones were removed. She is reportedly feeling much better and her pain has resolved. Recommendation is to have a repeat ERCP [place] [facility] [place] 4-6 weeks. Her diet was advanced. She is on IV fluids and IV antibiotics. CM will continue to support discharge planning needs. A: 50 year old female admitted to [facility] on 10/04/21 for Acute gallstone pancreatitis P: Shu is being followed by surgery. She had a down and [place] [facility] [place] [place] for an ERCP/EUS. Anticipate Shu will discharge home when medically ready. She will transport with family and follow up with community providers.
[2021-10-07 15:45] VITALS: BP 110/73; PULSE 87; RESP 18; TEMP 37.4; O2SAT 99
[2021-10-07] MEDS: Normal Saline Flush 10 ML SYR IVP ×3 (15:50→23:40)
[2021-10-07] MEDS: cefTRIAXone 1 GM/50 ML BAG IVPB (15:51)
[2021-10-07] MEDS: Pantoprazole 40 MG VIAL IVP (17:54)
[2021-10-07 20:14] VITALS: BP 103/61; PULSE 79; RESP 16; TEMP 37.4; O2SAT 98
[2021-10-07] MEDS: Normal Saline 500 ML 30 ML IV (23:39)
[2021-10-07] MEDS: Mylanta Suspension 30 ML CUP PO (23:45)
--- NOTE | 2021-10-08 | DI.MRI_ITS ---
Exam(s) MR LOWER JOINT RT WO/W EXAM: MR LOWER JOINT RT WO/W CLINICAL HISTORY: ? Lytic lesion of right acetabulum on CT scan TECHNIQUE: Multiplanar multisequence MRI of the hip was performed. Both pre and post contrast infuse d sequences were performed. COMPARISON: CT CT ABDOMEN PELVIS W from 10/04/2021 MR MR ABDOMEN WO from 10/05/2021 FINDINGS: MARROW: There is no evidence of hip stress fracture, avascular necrosis, nor prominent joint effusion . No osteophytes. No bony excrescence to suggest CAM-type ARTURO. LABRUM/ARTICULATION: There is prominent tear along the superior aspect of the acetabulum appearing to extend from front to back. Small paralabral cyst is seen anteriorly. There is also ipsilateral chond ral fissuring in the right acetabular cartilage. There is a large overlying subchondral cyst in the a cetabulum which is septated and exhibits well-defined thin external hypointense sclerotic border. Thi s measures 3.3 x 3.3 x 2.3 cm and is associated with dehiscence of the cortex of the roof of the acet abulum at this level (as also seen on the recent CT scan). MUSCLES AND TENDONS: Iliopsoas unremarkable and without bursitis. No evidence of tear in the gluteus medius and other muscles around the hip. No bursitis. No hamstring tearing nor abnormal intraosseous signal in the ischial tuberosity. IMPRESSION: There is prominent labral tear and cartilage fissuring with a combination of small extraosseous paral abral cyst and larger overlying subchondral cyst, with the large subchondral cyst related to the labr al tear. May represent an element of intraosseous paralabral cyst. There are minimal if any significant degenerative changes in femoral head. No cysts in the femoral he ad and nor osteophytes. DATA REPOSITORY:
[2021-10-08] MEDS: hydrOXYzine HCL 10 MG TAB PO (00:55)
[2021-10-08] MEDS: Ketorolac 30 MG/ML VIAL IVP ×3 (03:22→19:37)
[2021-10-08] MEDS: Normal Saline Flush 10 ML SYR IVP ×8 (03:24→22:43)
[2021-10-08] MEDS: Ondansetron 4 MG/2 ML VIAL IVP ×2 (03:24→22:42)
[2021-10-08 03:48] VITALS: BP 100/61; PULSE 73; RESP 16; TEMP 37.3; O2SAT 94
[2021-10-08 07:22] LABS: ALT 181 U/L (14-59); AST 40 U/L (15-37); Albumin 2.8 g/dL (3.4-5.0); Alkaline Phosphatase 338 U/L (46-116); Anion Gap 8.2 mmol/L (3-11); BUN 17 mg/dL (7-18); Bilirubin, Total 3.5 mg/dL (0.2-1.0); CO2 25.8 mmol/L (21.0-32.0); CREATININE 0.7 mg/dL (0.55-1.02); Calcium 8.5 mg/dL (8.5-10.1); Chloride 107 mmol/L (98-107); Glucose 116 mg/dL (74-106); Potassium 4.3 mmol/L (3.5-5.1); Sodium 141 mmol/L (136-145); Total Protein 6.3 g/dL (6.4-8.2)
[2021-10-08 07:46] LABS: Lipase 1745 U/L (73-393)
[2021-10-08] MEDS: metroNIDAZOLE 500 MG/100 ML BAG 100 MG IVPB ×3 (07:53→23:14)
[2021-10-08 08:35] VITALS: BP 107/58; PULSE 79; RESP 16; TEMP 36.9; O2SAT 99
--- NOTE | 2021-10-08 09:29 | W.PM.DS.N ---
DS: Diagnosis Discharge Diagnosis (1) Acute gallstone pancreatitis: Status: Acute (2) Hyperbilirubinemia: Status: Resolved (3) Choledocholithiasis with chronic cholecystitis: Status: Acute Discharge Plan Disposition Patient Disposition: HOME Condition: Stable Discharge Details Reason For Visit: Gallstone,Pancreatitis Admit Date/Time: 10/04/21 15:32 Admit Provider: Tammie Ferrell Attending Provider: Tammie Ferrell [facility] Hospital Course: see addendum Home Meds and New Rx's Prescriptions: New ketorolac 10 mg Tablet 10 mg PO Q6H PRN PRN (Reason: Pain) Qty: 20 0RF Continued epinephrine [EpiPen 2-Cornell] 0.3 mg/0.3 mL auto-injector 0.3 mg IM ONCE Qty: 1 2RF vitamin B complex 1 EACH capsule 1 cap PO DAILY 0RF calcium carbonate-vitamin D3 [Calcium 500 With D] 1 EACH tablet 2 tab PO DAILY 0RF acidophilus-pectin, citrus [Acidophilus Probiotic] 1 EACH capsule 1 cap PO DAILY 0RF Discharge Instructions Additional Instructions: -Follow-up with Dr. Basurto Sunday 10/22 @ 11:30am -Diet: low fat. See below -Don't strain to move bowels. Take Milk of Magnesia or Miralax as needed. -Keep wound clean and dry. Wash incision with soap and water daily. Pat dry, don't rub. You may find that your appetite is smaller. Eat 3-6 small meals throughout the day. It is important to drink lots of water after surgery, 6-10 glasses a day. -If you were given an incentive spirometry (breathing director museum or zoo?), continue to do this 10x/hour while awake. -We do want you up walking, at least 5-6 times per day. This is very important to prevent pneumonia and blood clots. You can climb stairs, take them slowly. -No lifting over 5 pounds. This is very important to avoid developing a hernia in your incision. -You may find that you are very tired after surgery- this is normal. -please do not smoke for a minimum of 72 hours after surgery. It's helpful to know a little background: The gallbladder collects bile, a fluid that is produced by the liver, and releases it when you eat to aid the breakdown and absorption of fat. Between meals, bile collects in the gallbladder and is concentrated. When the gallbladder is removed, bile is less concentrated and it drains continuously into the intestine. This affects digestion of fat and fat-soluble vitamins. How much of a problem it is varies from person to person. With time, the body often adjusts and becomes better at digesting fatty foods. ? The amount of fat eaten at one time also factors into the equation. Smaller amounts of fat are easier to digest. On the other hand, large amounts can remain undigested and cause gas, bloating and diarrhea. ? Eat smaller, more frequent meals. This may ensure a better mix with available bile. Include small amounts of lean protein, such as poultry, fish and nonfat dairy, at every meal, along with vegetables, fruit and whole grains. ? ? Go easy on fat. Avoid high-fat foods, fried and greasy foods, and fatty sauces and gravies. Instead, choose nonfat or low-fat foods. Read labels and look for foods with 3 grams of fat or less a serving. Foods to Avoid High-fat foods include: Pork & Dairy ? Foods that are fried, like Vietnamese fries and potato chips ? High-fat meats, such as torres, bologna, sausage, ground beef, and ribs, pork products ? High-fat dairy products, such as cheese, ice cream, cream, whole milk, and sour cream ? Pizza ? Foods made with lard or butter ? Creamy soups or sauces ? Meat gravies ? Chocolate ? Oils, such as palm and coconut oil ? Skin of chicken or turkey ?? Nuts and nut butters ?? Avocadoes Stand Alone Forms: Nursing Discharge Form Referrals: Milvia Basurto DO [OSTEOPATHIC DOCTOR] - 10/22/21 11:30 am Activity:: see above Equipment/Supplies:: No Equipment Needed Diet:: see above Discharge Orders Discharge Orders: Discharge Order (Routine); Ordered 10/18/21 Ordered By: Tammie Ferrell Discharge Data Discharge Date/Time-TO BE ENTERED AT DEPARTURE: 10/18/21 09:37 DS: Data Vitals/I&O Vitals and I&O: Vital Signs Temperature 36.9 C 10/08/21 08:35 Temperature Source Tympanic 10/08/21 08:35 Pulse 79 10/08/21 08:35 Pulse Rhythm Regular 10/07/21 23:46 Respiratory Rate 16 10/08/21 08:35 Respiratory Effort Non-Labored 10/07/21 23:46 Respiratory Depth Normal 10/07/21 23:46 Respiratory Pattern Normal 10/07/21 23:46 Blood Pressure 107/58 L 10/08/21 08:35 Blood Pressure Position Sitting 10/04/21 12:56 Pulse Oximetry 99 10/08/21 08:35 Oxygen Delivery Method Room Air 10/08/21 08:35 Oxygen Flow Rate 0 10/08/21 08:35 Pain Level 0 10/08/21 08:35 Intake & Output 10/07/21 10/07/21 10/08/21 11:59 23:59 11:59 Intake Total 1089.583 / 2239.583 1150 / 2239.583 340 / 340 Output Total 100 / 100 Balance 1089.583 / 2139.583 1050 / 2139.583 340 / 340 Intake: IV 589.583 / 9356.478 1138 / 1739.583 100 / 100 Oral 500 / 500 240 / 240 Output: Urine 100 / 100 Other: Urine Color Pale Pale Yellow Urine Appearance Clear Clear Clear Urine Odor None Comment pT said she has been voiding regularly. Per patient she has been voiding this morning Stool Characteristics Soft Formed Voiding Methods Toilet Toilet Toilet Data Completed and Pending Labs on day of discharge: Labs from last 24 hours 10/08/21 10/08/21 10/08/21 08:36 06:39 06:39 WBC Pending RBC Pending Hgb Pending Hct Pending MCV Pending MCH Pending MCHC Pending RDW Pending Plt Count Pending MPV Pending Immature Gran % Pending Neutrophils % Pending Lymphocytes % Pending Monocytes % Pending Eosinophils % Pending Basophils % Pending Absolute Neutrophils Pending Absolute Lymphocytes Pending Absolute Monocytes Pending Absolute Eosinophils Pending Absolute Basophils Pending Sodium 141 Potassium 4.3 Chloride 107 Carbon Dioxide 25.8 Anion Gap 8.2 BUN 17 Creatinine 0.7 Estimated GFR/1.73 m2 >= 60.00 Glucose 116 H Calcium 8.5 Total Bilirubin 3.5 H AST 40 H ALT 181 H Alkaline Phosphatase 338 H Total Protein 6.3 L Albumin 2.8 L Lipase 1745 H PFSH All Active Problems (Updated 10/13/21 @ 22:00 by Milvia Basurto DO) S/P ERCP (Acute) Sphincterotomy and stent placement S/P cholecystectomy (Acute) Choledocholithiasis with chronic cholecystitis (Acute) Acute gallstone pancreatitis (Acute) Medical History (Updated 10/13/21 @ 22:00 by Milvia Basurto DO) Abnormal CT scan 09/2021- lytic lesion right acetabulum- needs MRI if not competed at [facility] Bone cyst of right femur Fatigue Greater trochanteric bursitis of right hip Iliotibial band syndrome of right side Surgical History (Updated 10/13/21 @ 22:00 by Milvia Basurto DO) Status post tonsillectomy and adenoidectomy Tonsillectomy and adenoidectomy (~1977) Family History Mother Essential hypertension Hodgkin's disease Father Essential hypertension Sister Essential hypertension Asthma Grandfather Essential hypertension Heart disease Hyperlipidemia Grandfather Stroke Grandmother Stroke Grandmother Diabetes Essential hypertension Heart disease Stroke Son No problems noted. Daughter No problems noted. FAMILY HISTORY Stroke Social History Smoking/Tobacco Use Status: Never Second Hand Exposure: Yes Smoking risk assessment performed?: Yes Alcohol Intake: never Drug use: Never Substance use type: does not use Do you feel safe at home: Yes Do you feel safe in your relationship?: Yes
[2021-10-08 09:51] LABS: Abs Immature Grans 0.07 10^3/uL (0.0-0.06); Absolute Eosinophil Count 0.16 10^3/uL (0.0-0.7); Absolute Lymphocyte Count 1.81 10^3/uL (1.2-3.4); Absolute Monocyte Count 0.69 10^3/uL (0.1-0.8); Basophils % 0.7; Eosinophils % 1.3; HCT 31.8 % (36.0-46.0); HGB 10.3 g/dL (11.2-15.7); Immature Grans % 0.6; Lymphocytes % 14.9; MCH 30.3 pg (27.0-33.0); MCHC 32.4 % (32.0-36.0); MCV 93.5 fL (80-95); MPV 11.8 fL (8.0-11.0); Monocytes % 5.7; Neutrophils % 76.8; Nucleated RBC 0 %; Platelet Count 373 10^3/uL (130-400); RDW 14.6 % (11.7-14.6); WBC 12.18 10^3/uL (4.4-10.8)
[2021-10-08 09:56] LABS: Absolute Basophil Count 0.09 10^3/uL (0.0-0.2); Absolute Neutrophil Count 9.35 10^3/uL (1.2-6.7)
[2021-10-08] MEDS: Gadoterate meglumine 20 ML VIAL 14 ML IVP (11:51)
--- NOTE | 2021-10-08 12:48 | DI.VRAD_ITS ---
PROCEDURE INFORMATION: Exam: MR Right Lower Extremity Joint Without and With Contrast; Hip Exam date and time: 10/08/2021 12:01 PM Age: 50 years old Clinical indication: Other: Acetabular lesion on recent CT TECHNIQUE: Imaging protocol: MR of the Right lower extremity joint without and with contrast. Exam focused on the hip. Contrast material: DOTAREM; Contrast volume: 14 ml; Contrast route: INTRAVENOUS (IV); COMPARISON: CT ABDOMEN PELVIS W 10/04/2021 2:09 PM FINDINGS: Bones and cartilage: Subtle full-thickness chondral fissure of the right acetabulum. Tiny extraosseous cyst along the anterior margin of the right acetabulum, measuring 5 x 3 x 9 mm. Joint spaces: Trace left hip joint effusion. Mild right hip joint DJD. There is a prominent subchondral cyst within the right acetabulum, containing thin septations. This has a well-defined sclerotic margin. This measures 3.2 x 3.3 x 2.3 cm. This demonstrates peripheral enhancement. No nodular enhancement. This contains a small amount of gas. Labrum: There appears to be a diffuse right acetabular labral tear. TENDONS: Tendons of iliopsoas group: Unremarkable. No evidence of tear. Tendons of medial compartment of thigh: Unremarkable. No evidence of tear. Tendons of lateral rotators of hip: Unremarkable. No evidence of tear. Tendons of gluteal group: Unremarkable. No evidence of tear. Muscles: Unremarkable. Soft tissues: Mild anasarca. Bowel: The cecum is moderately distended with stool. Reproductive: Simple 13 mm right ovarian cyst. Small cervical nabothian cysts. 7 mm hemorrhagic right ovarian cyst. IMPRESSION: 1. Right acetabular benign subchondral pneumatocyst. 2. Subtle full-thickness chondral fissure of the right acetabulum. 3. Diffuse tear of the right acetabular labrum, with a tiny paralabral cyst. Please note that this is a preliminary report. The separate, final report is to follow. Dictated and Authenticated by: Analia Hendrickson MD. Ordering:ANOOP Quick MD
[2021-10-08] MEDS: cefTRIAXone 1 GM/50 ML BAG IVPB (15:52)
[2021-10-08 15:58] VITALS: BP 107/74; PULSE 72; RESP 11; TEMP 37.3; O2SAT 100
[2021-10-08] MEDS: ACETAMINOPHEN 1,000 MG/100 ML BTL 400 MG IVPB ×2 (16:10→22:27)
[2021-10-08] MEDS: Mylanta Suspension 30 ML CUP PO (16:30)
--- NOTE | 2021-10-08 16:47 | PDOC.CMDIS ---
- If Service Date Differs Date of service: 10/08/21 Time of Service: 16:47 LACE Index Scoring Tool - Questions: Length of Stay (in days): 4 - 6 Acuity (Admit via E.D.?): Yes E.D. Visits: 1 - Answers: Total Score: 8 Risk of Readmission: Low Risk Care Management Discharge Reason for Hospitalization: Gallstone Pancreatitis Discharge Plan: Shu will discharge home when medically ready. She will transport with family and follow up with community providers. Patient/Family Education Needs: Review discharge instructions, discuss Ask Me Three.
[2021-10-08] MEDS: Pantoprazole 40 MG VIAL IVP (17:34)
[2021-10-08] MEDS: MORPHine 2 MG/ML SYR IVP ×3 (18:28→22:42)
--- NOTE | 2021-10-08 19:58 | W.PM.PROGNOT ---
Date of Service Date of service: 10/08/21 Time of Service: 19:58 Assessment and Plan Assessment and plan (1) Choledocholithiasis with chronic cholecystitis: Status: Acute (2) Acute gallstone pancreatitis: Status: Acute Assessment and plan: -pt is s/p ERCP adn a spincterotomy and stent. She may have a recrudenscence of her pancreatitis. We will keep her own IV fluids over night and repeat labs in am (3) Bone cyst of right femur: Status: Acute Assessment and plan: -I did review the MRI w/ Dr. Nelson and he fills this is benign and can f/u as an outpt Subjective Subjective Interval history since last seen: pt was c/o nausea and bloating and poor appetite. no headaches. No CP or SOB. no productive cough. no dysuria. no leg pain or swelling. Exam GI Other: mild bloating and epigastric abdominal pain Objective Last Vital Signs Temp 37.3 C 10/08/21 15:58 Pulse 72 10/08/21 15:58 Resp 11 L 10/08/21 15:58 BP 107/74 10/08/21 15:58 Pulse Ox 100 10/08/21 15:58 Laboratory Results - last 24 hr 10/08/21 10/08/21 10/08/21 06:39 06:39 06:39 WBC 12.18 H RBC 3.40 L Hgb 10.3 L Hct 31.8 L MCV 93.5 MCH 30.3 MCHC 32.4 RDW 14.6 Plt Count 373 MPV 11.8 H Immature Gran % 0.6 Neutrophils % 76.8 Lymphocytes % 14.9 Monocytes % 5.7 Eosinophils % 1.3 Basophils % 0.7 Nucleated RBC % 0 Absolute Neutrophils 9.35 H Absolute Lymphocytes 1.81 Absolute Monocytes 0.69 Absolute Eosinophils 0.16 Absolute Basophils 0.09 Sodium 141 Potassium 4.3 Chloride 107 Carbon Dioxide 25.8 Anion Gap 8.2 BUN 17 Creatinine 0.7 Estimated GFR/1.73 m2 >= 60.00 Glucose 116 H Calcium 8.5 Total Bilirubin 3.5 H AST 40 H ALT 181 H Alkaline Phosphatase 338 H Total Protein 6.3 L Albumin 2.8 L Lipase 1745 H
[2021-10-08] MEDS: Lactated Ringers 1,000 ML 50 ML IV (22:27)
[2021-10-08 23:47] VITALS: BP 116/82; PULSE 68; RESP 18; TEMP 36.8; O2SAT 98
[2021-10-09] MEDS: Mylanta Suspension 30 ML CUP PO ×2 (01:01→06:36)
[2021-10-09] MEDS: Ketorolac 30 MG/ML VIAL IVP ×4 (01:17→22:49)
[2021-10-09] MEDS: MORPHine 2 MG/ML SYR IVP ×2 (01:17→03:58)
[2021-10-09] MEDS: Ondansetron 4 MG/2 ML VIAL IVP ×3 (03:58→13:12)
[2021-10-09] MEDS: ACETAMINOPHEN 1,000 MG/100 ML BTL 400 MG IVPB ×2 (06:36→18:10)
[2021-10-09 06:50] LABS: Lipase 639 U/L (73-393)
[2021-10-09 06:53] LABS: ALT 149 U/L (14-59); AST 44 U/L (15-37); Albumin 2.7 g/dL (3.4-5.0); Alkaline Phosphatase 278 U/L (46-116); Anion Gap 5.7 mmol/L (3-11); BUN 12 mg/dL (7-18); Bilirubin, Total 3.1 mg/dL (0.2-1.0); CO2 26.3 mmol/L (21.0-32.0); CREATININE 0.7 mg/dL (0.55-1.02); Calcium 8.6 mg/dL (8.5-10.1); Chloride 102 mmol/L (98-107); Glucose 126 mg/dL (74-106); Sodium 134 mmol/L (136-145); Total Protein 6.1 g/dL (6.4-8.2)
[2021-10-09] MEDS: Normal Saline Flush 10 ML SYR IVP ×3 (07:16→22:50)
[2021-10-09] MEDS: metroNIDAZOLE 500 MG/100 ML BAG 100 MG IVPB ×2 (07:26→15:54)
[2021-10-09 07:51] VITALS: BP 119/76; PULSE 64; RESP 16; TEMP 37; O2SAT 98
[2021-10-09] MEDS: Lactobacillus Acidophilus CAP 1 CAP PO (10:57)
--- NOTE | 2021-10-09 13:27 | PDOC.CMPRO ---
- If Service Date Differs Date of service: 10/09/21 Time of Service: 13:27 Care Management Progress Note S/O: Mita was lying in bed when CM met with her. She was pleasant and easily engaged in conversation. She c/o nausea, bloating and epigastric pain. She is being followed by surgery and is receiving IV ABX. She also requires IV Zofran, pain meds and fluids. Her skin is jaundice, but looks to be improving. She is 3 days s/p ERCP and a spincterotomy and stent at [facility] and was initially feeling much better. CM will continue to support discharge planning needs. A: 50 year old female admitted to [facility] on 10/04/21 for Acute gallstone pancreatitis P: Shu is being followed by surgery. She had a down and back at [facility] 10/06/21 for an ERCP/EUS. Anticipate Shu will discharge home when medically ready. She will transport with family and follow up with community providers.
[2021-10-09] MEDS: Lactated Ringers 1,000 ML 100 ML IV ×2 (14:33→18:15)
--- NOTE | 2021-10-09 15:15 | W.PM.PROGNOT ---
Date of Service Date of service: 10/09/21 Time of Service: 15:15 Assessment and Plan Assessment and plan (1) Acute gallstone pancreatitis: Status: Acute Assessment and plan: -Resolving, although may have recurrent pancreatitis as sequelae from ERCP -Will repeat labs including LFT's in AM, lipase down-trending but symptoms worsening -Continue bland, low fat diet as tolerated -PRN analgesia and antiemetics as ordered -Continue IV antibiotics for now to prevent infection -Depending on symptomatology will determine when patient is stable to be discharged home -Encourage ambulation and incentive spirometer use (2) Hyperbilirubinemia: Status: Acute (3) Choledocholithiasis with chronic cholecystitis: Status: Acute Exam Narrative Exam Narrative: Patient reports severe abdominal pain last night, resolved today although continues to have nausea, ate eggs this AM and chicken soup for lunch. States she feels like her gallbladder is pulsating today. Const General: cooperative, healthy appearing, comfortable and no acute distress Nutritional Appearance: average body habitus Eyes General: appearance normal, both eyes and all related structures Eyelids: eyelids normal Conjunctivae: conjunctivae normal Sclera: scleral abnormality (icterus, improved) Resp Effort & Inspection: normal respiratory effort, able to speak in complete sentences, no audible wheezes and no cough Cardio Rate: regular rate Rhythm: regular rhythm GI Inspection: normal to inspection and non-distended Palpation: soft, not firm, no guarding and tender in the epigastrum and in the RUQ Percussion: normal to percussion Skin General skin exam: no rashes or lesions noted and jaundice Wounds: no wounds Neuro General: patient alert, patient awake and patient oriented x3 Objective Last Vital Signs Temp 98.6 F 10/09/21 07:51 Pulse 64 10/09/21 07:51 Resp 16 10/09/21 07:51 BP 119/76 10/09/21 07:51 Pulse Ox 98 10/09/21 07:51 Laboratory Results - last 24 hr 10/09/21 10/09/21 06:21 06:21 Sodium 134 L Potassium 4.0 Chloride 102 Carbon Dioxide 26.3 Anion Gap 5.7 BUN 12 Creatinine 0.7 Estimated GFR/1.73 m2 >= 60.00 Glucose 126 H Calcium 8.6 Total Bilirubin 3.1 H AST 44 H ALT 149 H Alkaline Phosphatase 278 H Total Protein 6.1 L Albumin 2.7 L Lipase 639 H
[2021-10-09 15:51] VITALS: BP 105/67; PULSE 82; RESP 18; TEMP 36.5; O2SAT 98
[2021-10-09] MEDS: cefTRIAXone 1 GM/50 ML BAG IVPB (15:53)
[2021-10-09] MEDS: Pantoprazole 40 MG VIAL IVP (17:01)
[2021-10-09 19:12] VITALS: BP 108/59; PULSE 87; RESP 19; TEMP 37; O2SAT 98
[2021-10-09 23:30] VITALS: BP 99/61; PULSE 83; RESP 16; TEMP 36.7; O2SAT 98
[2021-10-10] MEDS: Normal Saline Flush 10 ML SYR IVP ×3 (00:25→23:43)
[2021-10-10] MEDS: metroNIDAZOLE 500 MG/100 ML BAG 100 MG IVPB ×4 (00:25→23:43)
[2021-10-10] MEDS: ACETAMINOPHEN 1,000 MG/100 ML BTL 400 MG IVPB (02:53)
[2021-10-10] MEDS: Normal Saline 500 ML 30 ML IV ×2 (02:55→23:43)
[2021-10-10] MEDS: Lactated Ringers 1,000 ML 100 ML IV (06:36)
[2021-10-10 07:10] LABS: Abs Immature Grans 0.09 10^3/uL (0.0-0.06); Absolute Basophil Count 0.06 10^3/uL (0.0-0.2); Absolute Eosinophil Count 0.17 10^3/uL (0.0-0.7); Absolute Lymphocyte Count 1.22 10^3/uL (1.2-3.4); Basophils % 0.4; Eosinophils % 1.2; HCT 31.1 % (36.0-46.0); HGB 9.8 g/dL (11.2-15.7); Immature Grans % 0.6; Lymphocytes % 8.4; MCH 30.2 pg (27.0-33.0); MCHC 31.5 % (32.0-36.0); MPV 10.7 fL (8.0-11.0); Monocytes % 7.6; Neutrophils % 81.8; Nucleated RBC 0 %; Platelet Count 369 10^3/uL (130-400); RBC 3.24 10^6/uL (3.93-5.22); RDW 13.8 % (11.7-14.6); RDW-SD 48.9 fL; WBC 14.53 10^3/uL (4.4-10.8)
[2021-10-10 07:11] LABS: Absolute Neutrophil Count 11.89 10^3/uL (1.2-6.7)
[2021-10-10 07:18] LABS: Lipase 576 U/L (73-393)
[2021-10-10 07:22] LABS: ALT 104 U/L (14-59); ALT 106 U/L (14-59); AST 21 U/L (15-37); AST 22 U/L (15-37); Albumin 2.5 g/dL (3.4-5.0); Albumin 2.6 g/dL (3.4-5.0); Alkaline Phosphatase 228 U/L (46-116); Alkaline Phosphatase 229 U/L (46-116); Anion Gap 8.9 mmol/L (3-11); BUN 10 mg/dL (7-18); Bilirubin, Total 2.9 mg/dL (0.2-1.0); CO2 26.1 mmol/L (21.0-32.0); CREATININE 0.7 mg/dL (0.55-1.02); Calcium 8.5 mg/dL (8.5-10.1); Chloride 105 mmol/L (98-107); Glucose 121 mg/dL (74-106); Potassium 4.4 mmol/L (3.5-5.1); Sodium 140 mmol/L (136-145); Total Protein 6.2 g/dL (6.4-8.2)
[2021-10-10] MEDS: Ketorolac 30 MG/ML VIAL IVP (07:46)
[2021-10-10] MEDS: Lactobacillus Acidophilus CAP 1 CAP PO (07:46)
[2021-10-10 08:43] VITALS: BP 97/65; PULSE 83; RESP 17; TEMP 37.1; O2SAT 98
--- NOTE | 2021-10-10 11:42 | W.PM.PROGNOT ---
Date of Service Date of service: 10/10/21 Time of Service: 11:42 Assessment and Plan Assessment and plan (1) Acute gallstone pancreatitis: Status: Acute Assessment and plan: -Resolving, although may have recurrent pancreatitis as sequelae from ERCP -Will repeat labs including LFT's in AM, lipase down-trending but symptoms continued -Continue bland, low fat diet as tolerated, DC IVF -PRN analgesia and antiemetics as ordered, changed to PRN 0.5mg IV Dilaudid to prevent any effects on sphincter of oddi -Continue IV antibiotics for now to prevent infection, increasing leukocytosis will continue to trend and adjust abx accordingly -Depending on symptomatology will determine when patient is stable to have cholecystectomy -Encourage ambulation and incentive spirometer use (2) Hyperbilirubinemia: Status: Acute (3) Choledocholithiasis with chronic cholecystitis: Status: Acute Exam Narrative Exam Narrative: Patient reports severe abdominal pain last night, resolved today although continues to have nausea, ate eggs this AM and chicken soup for lunch. States she feels like her gallbladder is pulsating today. Const General: cooperative, healthy appearing, comfortable and no acute distress Nutritional Appearance: average body habitus Eyes General: appearance normal, both eyes and all related structures Eyelids: eyelids normal Conjunctivae: conjunctivae normal Sclera: scleral abnormality (icterus, improved) Resp Effort & Inspection: normal respiratory effort, able to speak in complete sentences, no audible wheezes and no cough Cardio Rate: regular rate Rhythm: regular rhythm GI Inspection: normal to inspection and non-distended Palpation: soft, not firm, no guarding and tender in the RUQ Percussion: normal to percussion Skin General skin exam: no rashes or lesions noted and jaundice Wounds: no wounds Neuro General: patient alert, patient awake and patient oriented x3 Objective Last Vital Signs Temp 98.8 F 10/10/21 08:43 Pulse 83 10/10/21 08:43 Resp 17 10/10/21 08:43 BP 97/65 L 10/10/21 08:43 Pulse Ox 98 10/10/21 08:43 Laboratory Results - last 24 hr 10/10/21 10/10/21 10/10/21 06:40 06:40 06:40 WBC RBC Hgb Hct MCV MCH MCHC RDW Plt Count MPV Immature Gran % Neutrophils % Lymphocytes % Monocytes % Eosinophils % Basophils % Nucleated RBC % Absolute Neutrophils Absolute Lymphocytes Absolute Monocytes Absolute Eosinophils Absolute Basophils Sodium 140 Potassium 4.4 Chloride 105 Carbon Dioxide 26.1 Anion Gap 8.9 BUN 10 Creatinine 0.7 Estimated GFR/1.73 m2 >= 60.00 Glucose 121 H Calcium 8.5 Total Bilirubin 2.9 H 2.9 H Conjugated Bilirubin 2.0 H AST 21 22 ALT 106 H 104 H Alkaline Phosphatase 228 H 229 H Total Protein 6.2 L 6.2 L Albumin 2.5 L 2.6 L Lipase 576 H 10/10/21 06:40 WBC 14.53 H RBC 3.24 L Hgb 9.8 L Hct 31.1 L MCV 96.0 H MCH 30.2 MCHC 31.5 L RDW 13.8 Plt Count 369 MPV 10.7 Immature Gran % 0.6 Neutrophils % 81.8 Lymphocytes % 8.4 Monocytes % 7.6 Eosinophils % 1.2 Basophils % 0.4 Nucleated RBC % 0 Absolute Neutrophils 11.89 H Absolute Lymphocytes 1.22 Absolute Monocytes 1.10 H Absolute Eosinophils 0.17 Absolute Basophils 0.06 Sodium Potassium Chloride Carbon Dioxide Anion Gap BUN Creatinine Estimated GFR/1.73 m2 Glucose Calcium Total Bilirubin Conjugated Bilirubin AST ALT Alkaline Phosphatase Total Protein Albumin Lipase
[2021-10-10 15:22] VITALS: BP 95/67; PULSE 93; RESP 19; TEMP 37.4; O2SAT 100
[2021-10-10] MEDS: cefTRIAXone 1 GM/50 ML BAG IVPB (15:29)
[2021-10-10] MEDS: Pantoprazole 40 MG VIAL IVP (16:34)
[2021-10-10 19:29] VITALS: BP 108/68; PULSE 89; RESP 18; TEMP 37.7; O2SAT 100
[2021-10-11 07:23] LABS: Abs Immature Grans 0.08 10^3/uL (0.0-0.06); Absolute Basophil Count 0.06 10^3/uL (0.0-0.2); Absolute Eosinophil Count 0.31 10^3/uL (0.0-0.7); Absolute Lymphocyte Count 1.18 10^3/uL (1.2-3.4); Basophils % 0.6; Eosinophils % 3.2; HCT 30.2 % (36.0-46.0); HGB 9.6 g/dL (11.2-15.7); Immature Grans % 0.8; Lymphocytes % 12.3; MCH 30.6 pg (27.0-33.0); MCHC 31.8 % (32.0-36.0); MCV 96.2 fL (80-95); MPV 11.1 fL (8.0-11.0); Monocytes % 6.2; Neutrophils % 76.9; Nucleated RBC 0 %; Platelet Count 420 10^3/uL (130-400); RBC 3.14 10^6/uL (3.93-5.22); RDW 13.4 % (11.7-14.6); RDW-SD 47.7 fL; WBC 9.62 10^3/uL (4.4-10.8)
[2021-10-11 07:39] LABS: Anion Gap 6.1 mmol/L (3-11); BUN 11 mg/dL (7-18); CO2 26.9 mmol/L (21.0-32.0); CREATININE 0.7 mg/dL (0.55-1.02); Calcium 8.8 mg/dL (8.5-10.1); Chloride 105 mmol/L (98-107); Glucose 125 mg/dL (74-106); Potassium 4.1 mmol/L (3.5-5.1); Sodium 138 mmol/L (136-145)
[2021-10-11 07:41] LABS: Lipase 597 U/L (73-393)
[2021-10-11 07:45] LABS: ALT 83 U/L (14-59); AST 15 U/L (15-37); Albumin 2.6 g/dL (3.4-5.0); Alkaline Phosphatase 206 U/L (46-116); Bilirubin, Direct 1.7 mg/dL (0.0-0.2); Total Protein 6.5 g/dL (6.4-8.2)
--- NOTE | 2021-10-11 07:47 | W.PM.PROGNOT ---
Date of Service Date of service: 10/11/21 Time of Service: 07:47 Assessment and Plan Assessment and plan (1) Acute gallstone pancreatitis: Status: Acute Assessment and plan: -Resolving, clinically imrpoved. -Will repeat labs including LFT's in AM, lipase plateaued, symptoms improved today. -Continue bland, low fat diet as tolerated. -PRN analgesia and antiemetics as ordered, changed to PRN 0.5mg IV Dilaudid to prevent any effects on sphincter of oddi -Continue IV antibiotics for now to prevent infection, leukocytosis resolved. -Depending on symptomatology will determine when patient is stable to have cholecystectomy, hopefully early this week. -Encourage ambulation and incentive spirometer use (2) Hyperbilirubinemia: Status: Acute (3) Choledocholithiasis with chronic cholecystitis: Status: Acute Subjective Subjective Patient reports: no new complaints, feels better, pain is less, tolerating a regular diet, voiding w/o difficulty and bowel movement; denies nausea or vomiting Exam Narrative Exam Narrative: Patient reports severe abdominal pain last night, resolved today although continues to have nausea, ate eggs this AM and chicken soup for lunch. States she feels like her gallbladder is pulsating today. Const General: cooperative, healthy appearing, comfortable and no acute distress Nutritional Appearance: average body habitus Eyes General: appearance normal, both eyes and all related structures Eyelids: eyelids normal Conjunctivae: conjunctivae normal Sclera: scleral abnormality (icterus, improved) Resp Effort & Inspection: normal respiratory effort, able to speak in complete sentences, no audible wheezes and no cough Cardio Rate: regular rate Rhythm: regular rhythm GI Inspection: normal to inspection and non-distended Palpation: soft, not firm, no guarding and nontender Percussion: normal to percussion Skin General skin exam: no rashes or lesions noted and jaundice Wounds: no wounds Neuro General: patient alert, patient awake and patient oriented x3 Objective Last Vital Signs Temp 99.9 F H 10/10/21 19:29 Pulse 89 10/10/21 19:29 Resp 18 10/10/21 19:29 BP 108/68 10/10/21 19:29 Pulse Ox 100 10/10/21 19:29 Laboratory Results - last 24 hr 10/11/21 10/11/21 10/11/21 06:30 06:30 06:30 WBC RBC Hgb Hct MCV MCH MCHC RDW Plt Count MPV Immature Gran % Neutrophils % Lymphocytes % Monocytes % Eosinophils % Basophils % Nucleated RBC % Absolute Neutrophils Absolute Lymphocytes Absolute Monocytes Absolute Eosinophils Absolute Basophils Sodium 138 Potassium 4.1 Chloride 105 Carbon Dioxide 26.9 Anion Gap 6.1 BUN 11 Creatinine 0.7 Estimated GFR/1.73 m2 >= 60.00 Glucose 125 H Calcium 8.8 Total Bilirubin 2.0 H Conjugated Bilirubin 1.7 H AST 15 ALT 83 H Alkaline Phosphatase 206 H Total Protein 6.5 Albumin 2.6 L Lipase 597 H 10/11/21 06:30 WBC 9.62 D RBC 3.14 L Hgb 9.6 L Hct 30.2 L MCV 96.2 H MCH 30.6 MCHC 31.8 L RDW 13.4 Plt Count 420 H MPV 11.1 H Immature Gran % 0.8 Neutrophils % 76.9 Lymphocytes % 12.3 Monocytes % 6.2 Eosinophils % 3.2 Basophils % 0.6 Nucleated RBC % 0 Absolute Neutrophils 7.40 H Absolute Lymphocytes 1.18 L Absolute Monocytes 0.60 Absolute Eosinophils 0.31 Absolute Basophils 0.06 Sodium Potassium Chloride Carbon Dioxide Anion Gap BUN Creatinine Estimated GFR/1.73 m2 Glucose Calcium Total Bilirubin Conjugated Bilirubin AST ALT Alkaline Phosphatase Total Protein Albumin Lipase
[2021-10-11 08:00] VITALS: BP 109/63; PULSE 84; RESP 17; TEMP 37.1; O2SAT 99
[2021-10-11] MEDS: metroNIDAZOLE 500 MG/100 ML BAG 100 MG IVPB ×2 (08:24→15:56)
[2021-10-11] MEDS: Lactobacillus Acidophilus CAP 1 CAP PO (08:24)
[2021-10-11] MEDS: Normal Saline Flush 10 ML SYR IVP ×3 (08:57→17:09)
[2021-10-11 15:25] VITALS: BP 109/73; PULSE 81; RESP 17; TEMP 37; O2SAT 100
[2021-10-11] MEDS: cefTRIAXone 1 GM/50 ML BAG IVPB (15:56)
[2021-10-11] MEDS: Pantoprazole 40 MG VIAL IVP (17:02)
[2021-10-11 23:09] VITALS: BP 101/65; PULSE 84; RESP 16; TEMP 36.6; O2SAT 98
[2021-10-12] MEDS: metroNIDAZOLE 500 MG/100 ML BAG 100 MG IVPB ×4 (00:29→23:26)
[2021-10-12] MEDS: Normal Saline Flush 10 ML SYR IVP ×5 (01:36→23:26)
[2021-10-12 07:38] LABS: ALT 72 U/L (14-59); AST 18 U/L (15-37); Albumin 2.7 g/dL (3.4-5.0); Alkaline Phosphatase 195 U/L (46-116); Anion Gap 7.4 mmol/L (3-11); BUN 13 mg/dL (7-18); Bilirubin, Direct 1.6 mg/dL (0.0-0.2); Bilirubin, Total 1.8 mg/dL (0.2-1.0); CO2 27.6 mmol/L (21.0-32.0); CREATININE 0.8 mg/dL (0.55-1.02); Calcium 9.1 mg/dL (8.5-10.1); Chloride 105 mmol/L (98-107); Glucose 121 mg/dL (74-106); Lipase 626 U/L (73-393); Potassium 4.1 mmol/L (3.5-5.1); Sodium 140 mmol/L (136-145); Total Protein 6.7 g/dL (6.4-8.2)
[2021-10-12 08:06] LABS: INR 1.1 (0.9-1.1)
[2021-10-12 08:07] VITALS: BP 118/74; PULSE 81; RESP 16; TEMP 36.7; O2SAT 100
[2021-10-12] MEDS: Vitamins B Comp w/C TAB 1 TAB PO (08:28)
[2021-10-12] MEDS: Lactobacillus Acidophilus CAP 1 CAP PO (08:28)
[2021-10-12] MEDS: Calcium 600mg/Vit D 200U TAB 2 TAB PO (08:28)
--- NOTE | 2021-10-12 12:02 | CMPROGNOTE_ITS ---
- If Service Date Differs Date of service: 10/12/21 Time of Service: 12:02 Care Management Progress Note S/O: Shu remains on IV abx. She is feeling better today and is tolerating a low fat diet. Mita is planning on going to the OR tomorrow for a Laparoscopic Cholecystectomy and will be NPO after midnight. Details of procedure were discussed with Dr. Hardy. A: 50 year old female admitted to [facility] on 10/04/21 for Acute gallstone pancreatitis P: Shu is being followed by surgery. Anticipate Shu will discharge home when medically ready and follow up with [facility] and community providers. She will transport with family. CM will continue to support discharge planning needs.
--- NOTE | 2021-10-12 14:09 | W.PM.PROGNOT ---
Date of Service Date of service: 10/12/21 Time of Service: 14:09 Assessment and Plan Assessment and plan (1) Acute gallstone pancreatitis: Status: Acute Assessment and plan: -Resolving, clinically improved. -Had 2 episodes of Colicky pain over the weekend. Feels better today. Lipase stable at 650 -Continue bland, low fat diet as tolerated. NPO after midnight -PRN analgesia and antiemetics as ordered, changed to PRN 0.5mg IV Dilaudid to prevent any effects on sphincter of oddi -Continue IV antibiotics for now to prevent infection, leukocytosis resolved. -Encourage ambulation and incentive spirometer use - Hopefully will be able to undergo Laparoscopic Cholecystectomy tomorrow. (2) Hyperbilirubinemia: Status: Acute (3) Choledocholithiasis with chronic cholecystitis: Status: Acute Subjective Subjective Interval history since last seen: Mrs Benavides is doing well today. She has had no more pain for the last 24 hours. She denies fevers. Her appetite is good. Exam Resp Auscultation: clear to auscultation bilaterally Cardio Rate: regular rate Rhythm: regular rhythm Heart Sounds: no gallops, no murmurs and no rubs GI Palpation: soft, no hepatosplenomegaly and tender (mild RUQ) Auscultation: normal bowel sounds Objective Last Vital Signs Temp 98.1 F 10/12/21 08:07 Pulse 81 10/12/21 08:07 Resp 16 10/12/21 08:07 BP 118/74 10/12/21 08:07 Pulse Ox 100 10/12/21 08:07 Laboratory Results - last 24 hr 10/12/21 10/12/21 10/12/21 06:45 06:45 06:45 PT 11.0 INR 1.1 Sodium 140 Potassium 4.1 Chloride 105 Carbon Dioxide 27.6 Anion Gap 7.4 BUN 13 Creatinine 0.8 Estimated GFR/1.73 m2 >= 60.00 Glucose 121 H Calcium 9.1 Total Bilirubin 1.8 H Conjugated Bilirubin 1.6 H AST 18 ALT 72 H Alkaline Phosphatase 195 H Total Protein 6.7 Albumin 2.7 L Lipase 626 H Patient ABO/Rh B Positive Antibody Screen NEGATIVE
[2021-10-12 15:20] VITALS: BP 104/68; PULSE 81; RESP 17; TEMP 37; O2SAT 100
[2021-10-12] MEDS: cefTRIAXone 1 GM/50 ML BAG IVPB (15:38)
[2021-10-12] MEDS: Pantoprazole 40 MG VIAL IVP (18:25)
[2021-10-12 23:53] VITALS: BP 106/68; PULSE 72; RESP 18; TEMP 36.7; O2SAT 100
[2021-10-13] VITALS (20 sets, daily range): BP systolic 91–119; BP diastolic 48–81; PULSE 54–78; RESP 12–25; TEMP 36.5–37.6; O2SAT 94–100; BMI 25.7
--- NOTE | 2021-10-13 06:23 | W.ANESPRE ---
General Info Date of Service Date Performed: 10/13/21 Height: 5 ft 5.5 in Weight: 71.3 kg Body Mass Index (BMI): 25.7 Surgical Procedure: Operation Date: 10/13/21 11:25 Proposed Procedure Side Surgeon p Cholecystectomy Laparoscopic Poss.Cholangio Milvia Basurto, DO Meds Allergies and Home Medications Allergies Allergy/AdvReac Type Severity Reaction Status Date / Time Tetracyclines Allergy Mild SKIN RASH Unverified 10/04/21 13:02 YELLOW HORNET VENOM Allergy Severe Uncoded 10/04/21 13:02 Home Medication Medication Instructions Recorded acidophilus 100 million 1 cap PO DAILY 12/13/12 cell-pectin, citrus 10 mg capsule (Acidophilus Probiotic) calcium carbonate 500 mg-vitamin 2 tab PO DAILY 12/13/12 D3 10 mcg (400 unit) tablet (Calcium 500 With D) vitamin B complex 1 cap PO DAILY 12/13/12 epinephrine 0.3 mg/0.3 mL 0.3 mg (0.3 mL) IM ONCE #1 pack 04/09/21 injection, auto-injector (EpiPen 2-[place]) Current Visit Medications: Current Medications Generic Name Dose Route Start Last Admin Trade Name Freq PRN Reason Stop Dose Admin Acidophilus/Pectin 1 cap 10/09/21 08:30 10/12/21 08:28 Lactobacillus Acidophilus Cap PO 1 cap DAILY BK Administration Al Hydrox/Mg Hydrox/Simethicone 30 ml 10/05/21 16:04 10/09/21 06:36 Mylanta Suspension 30 Ml Cup PO 30 ml Q4H PRN PRN Administration Calcium/Vitamin D 2 tab 10/05/21 08:30 10/12/21 08:28 Calcium 600mg/Vit D 200u Tab PO 2 tab DAILY BK Administration Diphenhydramine HCl 25 mg 10/04/21 20:52 Diphenhydramine 25 Mg Cap PO Q4H PRN PRN Hydromorphone HCl 0.5 mg 10/10/21 07:42 Hydromorphone 2 Mg/Ml Vial IVP Q4H PRN PRN Hydroxyzine HCl 10 mg 10/04/21 20:52 10/08/21 00:55 Hydroxyzine Hcl 10 Mg Tab PO 10 mg TID PRN PRN Administration Sodium Chloride 500 mls @ 0 mls/hr 10/04/21 15:31 10/11/21 00:55 Saline 500ml Bag IV 0 mls/hr PRN PRN Infusion As Directed Ceftriaxone Sodium/Dextrose 1 gm in 50 mls @ 100 mls/hr 10/05/21 16:00 10/12/21 15:38 Rocephin IVPB 100 mls/hr Q24H BK Administration Metronidazole 500 mg in 100 mls @ 100 mls/hr 10/05/21 00:00 10/12/21 23:26 Flagyl IVPB 100 mls/hr Q8H BK Administration Acetaminophen 1,000 mg in 100 mls @ 400 mls/hr 10/06/21 07:39 10/12/21 11:13 Ofirmev IVPB Infused Q8H PRN PRN Infusion IV Miscellaneous Supplies 1 each 10/04/21 15:45 Iv Access IV DIRECTED BK Ondansetron HCl 4 mg 10/04/21 15:31 10/09/21 13:12 Ondansetron 4 Mg/2 Ml Vial IVP 4 mg Q4H PRN PRN Administration Pantoprazole Sodium 40 mg 10/04/21 18:00 10/12/21 18:25 Pantoprazole 40 Mg Vial IVP 40 mg Q24H BK Administration Sodium Chloride 0 ml 10/04/21 15:31 10/12/21 23:26 Normal Saline Flush 10 Ml Syr IVP 20 ml PRN PRN Administration Vitamin B Complex/Vitamin C 1 tab 10/05/21 08:30 10/12/21 08:28 Vitamins B Comp W/C Tab PO 1 tab DAILY BK Administration PFSH Active Problems Active Problems: Problem Status Onset Code Choledocholithiasis with chronic cholecystitis K80.44 Hyperbilirubinemia E80.6 Acute gallstone pancreatitis K85.10 Medical History Medical History (Updated 10/13/21 @ 00:04 by TESSA CHAHAL) Abnormal CT scan 09/2021- lytic lesion right acetabulum- needs MRI if not competed at [facility] [place] Bone cyst of right femur Fatigue Greater trochanteric bursitis of right hip Iliotibial band syndrome of right side Surgical History Surgical History (Updated 10/13/21 @ 00:04 by TESSA CHAHAL) Status post tonsillectomy and adenoidectomy Tonsillectomy and adenoidectomy (~1977) Tobacco Smoking/Tobacco Use Status: Never Passive smoking exposure: Yes (Rarely) Second hand exposure: Yes Alcohol Alcohol Intake: never Substance Use Substance use: Never Substance use type: does not use Vital Signs and Lab Results Vital Signs Most Recent Vital Signs in EMR: Most Recent Vital Signs Temp Pulse Resp BP Pulse Ox 36.7 C 72 18 106/68 100 10/12/21 23:53 10/12/21 23:53 10/12/21 23:53 10/12/21 23:53 10/12/21 23:53 Point of Care Results Point of Care Results: POC- Test(urine) Negative 10/04/21 13:30 Lab Results Result Diagrams: 10/11/21 06:30 10/12/21 06:45 Blood Type / Crossmatch: Patient ABO/Rh B Positive 10/12/21 Antibody Screen NEGATIVE 10/12/21 Complete Blood Count: White Blood Count 9.62 10^3/uL (4.4-10.8) 10/11/21 06:30 10/11/21 Red Blood Count 3.14 10^6/uL (3.93-5.22) L 10/11/21 06:30 10/11/21 Hemoglobin 9.6 g/dL (11.2-15.7) L 10/11/21 06:30 10/11/21 Hematocrit 30.2 % (36.0-46.0) L 10/11/21 06:30 10/11/21 Platelet Count 420 10^3/uL (130-400) H 10/11/21 06:30 10/11/21 Complete Metabolic Panel: Sodium Level 140 mmol/L (136-145) 10/12/21 06:45 10/12/21 Potassium Level 4.1 mmol/L (3.5-5.1) 10/12/21 06:45 10/12/21 Chloride Level 105 mmol/L (98-107) 10/12/21 06:45 10/12/21 Carbon Dioxide Level 27.6 mmol/L (21.0-32.0) 10/12/21 06:45 10/12/21 Blood Urea Nitrogen 13 mg/dL (7-18) 10/12/21 06:45 10/12/21 Creatinine 0.8 mg/dL (0.55-1.02) 10/12/21 06:45 10/12/21 Estimated GFR/1.73 m2 >= 60.00 (mL/min/1.73m2) 10/12/21 06:45 10/12/21 Magnesium Level 1.9 mg/dL (1.8-2.4) 10/06/21 06:23 10/06/21 Calcium Level 9.1 mg/dL (8.5-10.1) 10/12/21 06:45 10/12/21 Albumin 2.7 g/dL (3.4-5.0) L 10/12/21 06:45 10/12/21 Glucose Level 121 mg/dL (74-106) H 10/12/21 06:45 10/12/21 Liver Function Panel: Alanine Aminotransferase (ALT/SGPT) 72 U/L (14-59) H 10/12/21 06:45 10/12/21 Aspartate Amino Transf (AST/SGOT) 18 U/L (15-37) 10/12/21 06:45 10/12/21 Coagulation Panel: INR International Normalized Ratio 1.1 (0.9-1.1) 10/12/21 06:45 10/12/21 Prothrombin Time 11.0 sec (9.3-11.0) 10/12/21 06:45 10/12/21 Cardiac Panel: No Data to Display Arterial Blood Gas: No Data to Display Venous Blood Gas: No Data to Display Pancreas Panel: Lipase 626 U/L (73-393) H 10/12/21 06:45 10/12/21 Thyroid Panel: No Data to Display Infectious Disease: Coronavirus (COVID-19)(PCR) Negative (Negative) 10/04/21 14:46 10/04/21 Coronavirus 2019 Source Nasal/Nares 10/04/21 14:46 10/04/21 Hepatitis B Surface Antigen Negative (Negative) 10/04/21 13:15 10/04/21 Hepatitis C Antibody Negative (Negative) 10/04/21 13:15 10/04/21 Blood Cultures: No Data to Display Toxicology Panel: No Data to Display Panel: No Data to Display Anesthesia Assessment and Plan Anesthesia History Personal History: No History of Anesthesia Complications Family History: No Family History of Anesthesia Complications Exercise Tolerance Exercise Tolerance: Metabolic Equivalents>4 Cardiac & Pulmonary Exam Cardiac Exam: Normal S1/S2 Heart Sounds Pulmonary Exam: Clear Bilateral Breath Sounds Implantable Cardiac Device Does patient have a Pacemaker or an ICD?: No Airway Exam Known Difficult Airway: No Mallampati Class: 2 Mouth Opening: Narrow (< 3cm) Thyromental Distance: Less than 3 cm Neck Range of Motion: Full ROM Neck Circumference: Normal Teeth Condition: Normal Dentition ASA Classification ASA Score: ASA 2 Emergency Case?: No NPO Status NPO Status: NPO Clears >2 hours, Solids >8 hours Status Status: Negative HCG Anesthesia Plan Resuscitation Status: Full Code Anesthesia Technique: General Anesthesia Airway Planned: Endotracheal Tube Pain Management: Surgeon and patient request nerve block (rescue. ) and Epidural (rescue. ) Monitors Used: Standard Monitors Preoperative Comments:: 50 yo female with gallstone pancreatitis for lap chetna. Sig PMHx: no major. Currently inpt, metronidazole 500 mg every 8 hrs, and ceftriaxone 1 gm daily. Per surgeon, high potential for open surgical approach. Discussed, risks, benefits, and alternatives of ESPB and epidural. She would like to proceed with GA and rescue ESPB in PACU if she is having significant pain, and a rescue epidural if the surgery doesn't remain laparoscopic. Previous Anes: mac 3 grade 1, easy mask.
--- NOTE | 2021-10-13 07:05 | PGE_ITS ---
Documented by User: JACQUELINE Griffin 10/13/21 07:08 Date of Service Date of service: 10/13/21 Time of Service: 07:06 Assessment and Plan Assessment and plan (1) Acute gallstone pancreatitis: Status: Acute Assessment and plan: -Resolving, clinically improved. -NPO -PRN analgesia and antiemetics as ordered, changed to PRN 0.5mg IV Dilaudid to prevent any effects on sphincter of oddi -Continue IV antibiotics for now to prevent infection, leukocytosis resolved. -Encourage ambulation and incentive spirometer use -Plan for laparoscopic Cholecystectomy later today. (2) Hyperbilirubinemia: Status: Acute (3) Choledocholithiasis with chronic cholecystitis: Status: Acute Subjective Subjective Interval history since last seen: Patient reports that she is feeling very well this morning. She denies having any pain and states that she slept well through the night. Exam Const General: cooperative, healthy appearing and comfortable Resp Effort & Inspection: normal respiratory effort, able to speak in complete sente nces, no audible wheezes and no cough Objective Last Vital Signs Temp 36.7 C 10/12/21 23:53 Pulse 72 10/12/21 23:53 Resp 18 10/12/21 23:53 BP 106/68 10/12/21 23:53 Pulse Ox 100 10/12/21 23:53 Laboratory Results - last 24 hr 10/12/21 10/12/21 10/12/21 06:45 06:45 06:45 PT 11.0 INR 1.1 Sodium 140 Potassium 4.1 Chloride 105 Carbon Dioxide 27.6 Anion Gap 7.4 BUN 13 Creatinine 0.8 Estimated GFR/1.73 m2 >= 60.00 Glucose 121 H Calcium 9.1 Total Bilirubin 1.8 H Conjugated Bilirubin 1.6 H AST 18 ALT 72 H Alkaline Phosphatase 195 H Total Protein 6.7 Albumin 2.7 L Lipase 626 H Patient ABO/Rh B Positive Antibody Screen NEGATIVE Documented by User: Milvia Basurto DO 10/13/21 09:05 Assessment and Plan Assessment and plan (1) Acute gallstone pancreatitis: Status: Acute Assessment and plan: -Resolving, clinically improved. -NPO -PRN analgesia and antiemetics as ordered, changed to PRN 0.5mg IV Dilaudid to prevent any effects on sphincter of oddi -Continue IV antibiotics for now to prevent infection, leukocytosis resolved. -Encourage ambulation and incentive spirometer use -Plan for laparoscopic Cholecystectomy later today. Patient seen and examined. Agree with above. I did discuss with the patient that its 50-50 whether we will be able to get this out laparoscopically or if he can go open. We discussed risks versus benefits of surgery. I discussed expectations in the postoperative period. The patient will be scheduled for laparoscopic cholecystectomy. The alternatives to surgery, risks, complications, and the possible need to convert to open cholecystectomy were discussed. Also bleeding, infection, pneumonia, blood clots, complications of anesthesia, damage to bowel, bladder, blood vessels, or bile ducts, liver, need for blood transfusions. Also: chronic pain, chronic diarrhea, reoccurrence of signs and symptoms, port site hernias, adhesions. All questions were answered and the patient elected to proceed with surgey. Patient had no problems with her anesthesia after the ERCP. She already has a stent in the common bile duct. She understands that she will need to go and have this removed and 4-6 weeks. (2) Hyperbilirubinemia: Status: Acute (3) Choledocholithiasis with chronic cholecystitis: Status: Acute
[2021-10-13] MEDS: metroNIDAZOLE 500 MG/100 ML BAG 100 MG IVPB ×3 (08:14→23:13)
[2021-10-13] MEDS: Normal Saline Flush 10 ML SYR IVP ×5 (08:16→23:14)
[2021-10-13] MEDS: Lactated Ringers 1,000 ML 30 ML IV (11:52)
--- NOTE | 2021-10-13 13:15 | GB_PTH ---
PATIENT: Shu Benavides LOC: U#:[id number] AGE/SX: 50/F ROOM: [id number] RE10/04/[address]: Tammie Ferrell DO : 1970 BED: A DIS: 10/18/2021 SPEC #: [id number] RECD: 10/13/21 16:15 STATUS: RIAN REQ #: [id number] JAVI: 10/13/21 13:[address]: Tammie Ferrell DEPT: Surgical Specimen RECD BY: Eulalia Maria ENTERED: 10/13/21 16:15 SP TYPE: GB OTHR DR: Linette Kemp, PhD MANAGING MANAGER Tissues: 1 - GALLBLADDER Procedures: GROSS AND MICRO LEVEL 3 Comments: [id number]
[2021-10-13] MEDS: Cellulose,Oxidized 4X8 1 PACKET MC (13:25)
[2021-10-13] MEDS: Bupivacaine LIPOSOME/PF 133 MG/10 ML VIAL IJ (13:26)
[2021-10-13] MEDS: Bupivacaine 0.25% Pres-Free 30 ML VIAL (13:27)
[2021-10-13] MEDS: Ketorolac 15 MG/ML VIAL IVP ×3 (14:16→23:13)
[2021-10-13] MEDS: HYDROmorphone 2 MG/ML VIAL IVP ×2 (14:45→14:55)
--- NOTE | 2021-10-13 15:04 | W.ANESPOSTOP ---
Postoperative Evaluation Date, Time and Location Date Performed: 10/13/21 Time Performed: 15:04 Patient Location: PACU Vital Signs Most Recent Imported Vital Signs: Most Recent Vital Signs Temp Pulse Resp BP Pulse Ox 36.5 C 64 20 98/54 L 96 10/13/21 14:45 10/13/21 14:45 10/13/21 14:45 10/13/21 14:45 10/13/21 14:45 Pain Score Most Recent Pain Score: Most Recent Pain Score Pain Level [Mid Abdomen] 8 10/06/21 08:19 Pain Level 10 10/13/21 14:45 Assessment Mental Status: Arousable with meaningful communication Airway and Respiratory Function: Patent airway with normal (patient baseline) respiratory exam Cardiovascular Function: Hemodynamically Stable Hydration Status: Adequately Hydrated Nausea & Vomiting: No Nausea or Vomiting Pain: Pain is Moderate or Severe Postoperative Pain Management: Pain being addressed with medication and Other (epidural discussed, she would like to hold off for now. ) Peripheral Nerve Block: Patient did not receive a nerve block
[2021-10-13] MEDS: ACETAMINOPHEN 1,000 MG/100 ML BTL 400 MG IVPB ×2 (15:16→23:09)
[2021-10-13] MEDS: cefTRIAXone 1 GM/50 ML BAG IVPB (16:51)
[2021-10-13] MEDS: Pantoprazole 40 MG VIAL IVP (18:11)
[2021-10-13] MEDS: Lactated Ringers 1,000 ML 100 ML IV ×2 (18:12→20:58)
--- NOTE | 2021-10-13 18:26 | CMPROGNOTE_ITS ---
- If Service Date Differs Date of service: 10/13/21 Time of Service: 18:26 Care Management Progress Note S/O: Shu was in the OR when CM attempted to meet with her. She was scheduled for a laparoscopic cholecystechtomy. Per report, she stated that she was feeling good this morning, prior to surgery. CM will continue to follow to determine discharge plans post surgically. A: 50 year old female admitted to [facility] on 10/04/21 for Acute gallstone pancreatitis P: Shu is being followed by surgery. Anticipate Shu will discharge home when medically ready and follow up with [facility] [place] and community providers. She will transport with family. CM will continue to support discharge planning needs.
[2021-10-13] MEDS: HYDROmorphone 2 MG/ML VIAL 0.5 MG IVP (20:56)
--- NOTE | 2021-10-13 21:55 | ROE_ITS ---
Date of service: 10/13/21 Time of Service: 21:56 Operative Note Operative Note DATE OF PROCEDURE: 10/13/21 PRE-OP DIAGNOSIS: Subacute cholecystitis and cholelithiasis. Also choledocho lithiasis and gallstone pancreatitis PROCEDURE: Attempted laparoscopic cholecystectomy and open cholecystectomy SURGEON: Milvia Basurto PLUSH BRUSHER: Ynes Harper ANESTHESIA TYPE: Local By Surgeon and General LMA/ETT Refer to Anesthesia Record ESTIMATED BLOOD LOSS: 200 PATHOLOGY: other COMPLICATIONS: None Patient was transported to: PACU Patient's condition: stable Procedure Description: Informed consent was obtained; explaining the risk and benefits of procedure, hospital stay, post-op expectations and recovery time. The alternatives to surgery, risks, complications, and the possible need to convert to open cholecystectomy were discussed. Also bleeding, infection, pneumonia, blood clots, complications of anesthesia, damage to bowel, bladder, blood vessels, or bile ducts, liver, need for blood transfusions. Also: chronic pain, chronic diarrhea, reoccurrence of signs and symptoms, port site hernias, adhesions.? All questions were answered and the patient elected to proceed with surgery The patient agrees and is brought to the operative room suite and placed in supine position. Anesthesia was administered per the Department of Anesthesia. The patient did receive IV antibiotics. NG tube and Dennison catheter are placed. The patient was prepped and draped in the usual sterile fashion using DuraPrep scrub solution. Pause for the cause was done. 20 mL of 1% buffered lidocaine was used for local anesthetization. A stab incision was made in the umbilicus and the Verres inserted. Drop test was positive and insufflation was begun. When 15 mm of pressure was noted on the monitor, the Veress was removed and #5 port inserted. The camera was inserted through the port and shows no damage to und erlying structures. A 10 mm port was then placed in the epigastric position under direct visualization following creation of local field blocks as well as two 5 mm ports in the right upper quadrant. The gallbladder is edematous and swollen and erythematous. It is about twice its normal size and still shows signs of chronic infection. The omentum and small bowel is adhered up to the gallbladder. These are taken down with blunt dissection. Energy is used to provide hemostasis the omentum once it is excised from the gallbladder. I did attempt to drain the gallbladder but there was no bile within it. It seems to be packed with stones. The gallbladder fundus was grasped and retracted towards the right shoulder. The stomach is densely adherent to the gallbladder. The tissues are dense and woody friable and bleeds readily. I am not able to get clean between the gallbladder and the stomach. And this does bleed quite readily. At this point it is clear that I am not going to be able to remove the gallbladder laparoscopically. She does still require removal because she continues to have ongoing problems with pain the laparoscopic portion of the procedure is then abandoned. The laparoscopic instrumentation is passed the field. The pneumoperitoneum is evacuated. A paramedian incision was made approximately 5 cm in length with a #15 blade scalpel, connecting the epigastric and right upper quadrant port site. Hemostasis was obtained using electro Bovie cautery. Dissection was carried down transrectus in the midline to the posterior rectus fascia, which was grasped with hemostats and entered with cautery. ? Next, Metzenbaum scissors were used to extend the incision and the abdomen was entered . The gallbladder was immediately visualized and brought up into view, grasped with a ring clamp. The right upper quadrant is then explored. There is no bleeding from the omentum dissection sites. There is no damage to the bowel. The stomach is finger fractured off the gallbladder. Again the gallbladder wall is thickened woody and the gallbladder appears to be completely full of stones. I did attempt to dissect into the hepatoduodenal ligament, however it was extremely woody and friable. The gallbladder was then taken off the liver in a top-down fashion using electrocautery. Electrocautery was used to provide hemostasis and Surgicel was placed in the gallbladder fossa. Once the gallbladder is off the liver I am able to identify and dissect out the cystic duct. The cystic duct is dilated. The artery and duct are dilated and endoclips were placed across the structures. . Four clips? are placed on the cystic duct and it is then ligated. The hemostasis was obtained using the electro Bovie cautery as well as some Surgicel. The gallbladder was then removed as a specimen, sent to pathology. ? The remainder of the fossa was hemostatic with the Surgicel and attention was next made to closing the abdomen. The RUQ was irrigated w/ a liter of saline; which was then evacuated.? There is no signs of bleeding from the GB fossa,?or from the clips. Two pieces of Interceed were placed under the incision A 15mm round drain was placed inthe GB fossa and brought out through a separate stab incision.? The peritoneum as well as posterior rectus fascia was approximated with a running #0 Vicryl suture and then the anterior rectus fascia was closed w/ running #0 PDS sutures.? The drain was sewn into place/ Skin marissa were used on the skin and sterile PICOS dressing were applied and the patient was transferred to recovery in stable condition.
--- NOTE | 2021-10-13 21:57 | W.PM.PROGNOT ---
Date of Service Date of service: 10/13/21 Time of Service: 21:58 Assessment and Plan Assessment and plan (1) S/P cholecystectomy: Status: Acute Assessment and plan: The patient is doing well post-op. Their pain is well controlled. They are having no nausea or vomiting. The pt is not having any chest pain or SOB, productive cough; no calf pain or swelling. The pt is making good urine. The pt pain is adequately controlled. The case was discussed with nursing and patients progress reviewed. All of the pt's home medications were addressed and adjusted accordingly for their oral intact status. HEENT: no jaundice. no eye pain/drainage/redness/swelling. mild sore throat cardio- NSR no chest pain, BP stable. pulm: no sob or productive cough. no hemoptysis incision- clean/dry. dressing intact no excessive bleeding or drainage She has had minimal out of the NAOMI and it just appears to be old blood I discussed with the patient and/or their family about the findings in surgery and the pt's prognosis. We reviewed expectations for progress in the hospital; what the pt could expect for recovery time and length of stay. We discussed the importance of walking and pulmonary toilet to avoid blood clots and pneumonia. Continue current plans for pulmonary toilet, GI and DVT prophylaxis. We shall continue the current plan for pain management as it is at an appropriate level and working well for the pt. Appropriate measures will be taken for constipation prevention as well, and this was also reviewed with the pt. A wound care plan was reviewed with nursing as well. see orders (2) Choledocholithiasis with chronic cholecystitis: Status: Acute (3) Acute gallstone pancreatitis: Status: Acute (4) S/P ERCP: Status: Acute Objective Last Vital Signs Temp 37.2 C 10/13/21 18:45 Pulse 72 10/13/21 18:45 Resp 17 10/13/21 18:45 BP 119/74 10/13/21 18:45 Pulse Ox 98 10/13/21 18:45 Laboratory Results - last 24 hr 10/13/21 07:39 Patient ABO/Rh Cancelled
[2021-10-14] MEDS: Lactated Ringers 1,000 ML 100 ML IV (03:56)
[2021-10-14] MEDS: ACETAMINOPHEN 1,000 MG/100 ML BTL 400 MG IVPB ×4 (03:56→22:25)
[2021-10-14] MEDS: Ketorolac 15 MG/ML VIAL IVP ×3 (06:10→18:37)
[2021-10-14] MEDS: Normal Saline Flush 10 ML SYR IVP ×4 (06:10→18:37)
[2021-10-14 06:57] LABS: Abs Immature Grans 0.06 10^3/uL (0.0-0.06); Absolute Lymphocyte Count 1.17 10^3/uL (1.2-3.4); Absolute Monocyte Count 0.85 10^3/uL (0.1-0.8); Basophils % 0.3; Eosinophils % 0.3; HCT 29.2 % (36.0-46.0); HGB 9.4 g/dL (11.2-15.7); Immature Grans % 0.5; Lymphocytes % 10.2; MCH 30.3 pg (27.0-33.0); MCHC 32.2 % (32.0-36.0); MCV 94.2 fL (80-95); MPV 10.4 fL (8.0-11.0); Monocytes % 7.4; Neutrophils % 81.3; Nucleated RBC 0 %; Platelet Count 523 10^3/uL (130-400); RDW 12.6 % (11.7-14.6); RDW-SD 43.6 fL; WBC 11.44 10^3/uL (4.4-10.8)
[2021-10-14 07:06] LABS: Absolute Basophil Count 0.03 10^3/uL (0.0-0.2); Absolute Eosinophil Count 0.03 10^3/uL (0.0-0.7)
[2021-10-14 07:32] VITALS: BP 117/75; PULSE 76; RESP 16; TEMP 36.8; O2SAT 99
[2021-10-14] MEDS: metroNIDAZOLE 500 MG/100 ML BAG 100 MG IVPB ×3 (07:55→23:19)
[2021-10-14] MEDS: Lactobacillus Acidophilus CAP 1 CAP PO (07:55)
[2021-10-14] MEDS: Normal Saline 500 ML 30 ML IV (08:05)
[2021-10-14 08:32] LABS: ALT 57 U/L (14-59); AST 32 U/L (15-37); Albumin 2.7 g/dL (3.4-5.0); Alkaline Phosphatase 163 U/L (46-116); Anion Gap 6.7 mmol/L (3-11); BUN 12 mg/dL (7-18); Bilirubin, Total 1.4 mg/dL (0.2-1.0); CO2 27.3 mmol/L (21.0-32.0); CREATININE 0.8 mg/dL (0.55-1.02); Calcium 8.8 mg/dL (8.5-10.1); Chloride 103 mmol/L (98-107); Glucose 114 mg/dL (74-106); Lipase 376 U/L (73-393); Magnesium 2.3 mg/dL (1.8-2.4); Potassium 4.7 mmol/L (3.5-5.1); Sodium 137 mmol/L (136-145); Total Protein 6.1 g/dL (6.4-8.2)
--- NOTE | 2021-10-14 14:17 | PGE_ITS ---
Date of Service Date of service: 10/14/21 Time of Service: 07:01 Assessment and Plan Assessment and plan (1) Acute gallstone pancreatitis: Status: Acute Assessment and plan: POD #1 s/p open cholecystectomy with Dr. Sb SANTIAGO- Low fat diet PAIN- Well controlled at this time. Discussed that activity may cause some discomfort. Pulmonary toilet Strongly encouraged activity OOB, ambulation and sitting in the chair. ERVIN dressing in place and working well NAOMI drain with serosanginous fluid. This does not appear to be bile. Continue IV antibiotics P// Pain control, increase activity as tolerated. (2) Hyperbilirubinemia: Status: Resolved (3) Choledocholithiasis with chronic cholecystitis: Status: Acute Subjective Subjective Interval history since last seen: Patient expresses some discomfort today. She states feeling some soreness with mobility. However when sitting still this pain is very tolerable. Patient denies any fevers chills or night sweats. Exam Const General: cooperative, healthy appearing and comfortable Orientation: alert and oriented x3 GI Other: ERVIN dressing is in place. Minimal shadowing noted. NAOMI drain in place. Serosanguineous drainage noted, this does not appear to cont ain bile. Abdomen is soft. Mild tenderness localized around the right upper quadrant incision site. Objective Last Vital Signs Temp 36.8 C 10/14/21 07:32 Pulse 76 10/14/21 07:32 Resp 16 10/14/21 07:32 BP 117/75 10/14/21 07:32 Pulse Ox 99 10/14/21 07:32 Laboratory Results - last 24 hr 10/14/21 10/14/21 06:05 06:05 WBC 11.44 H RBC 3.10 L Hgb 9.4 L Hct 29.2 L MCV 94.2 MCH 30.3 MCHC 32.2 RDW 12.6 Plt Count 523 H MPV 10.4 Immature Gran % 0.5 Neutrophils % 81.3 Lymphocytes % 10.2 Monocytes % 7.4 Eosinophils % 0.3 Basophils % 0.3 Nucleated RBC % 0 Absolute Neutrophils 9.30 H Absolute Lymphocytes 1.17 L Absolute Monocytes 0.85 H Absolute Eosinophils 0.03 Absolute Basophils 0.03 Sodium 137 Potassium 4.7 Chloride 103 Carbon Dioxide 27.3 Anion Gap 6.7 BUN 12 Creatinine 0.8 Estimated GFR/1.73 m2 >= 60.00 Glucose 114 H Calcium 8.8 Magnesium 2.3 Total Bilirubin 1.4 H AST 32 ALT 57 Alkaline Phosphatase 163 H Total Protein 6.1 L Albumin 2.7 L Lipase 376
[2021-10-14 15:31] VITALS: BP 116/73; PULSE 66; RESP 16; TEMP 37.2; O2SAT 99
[2021-10-14] MEDS: cefTRIAXone 1 GM/50 ML BAG IVPB (16:10)
--- NOTE | 2021-10-14 16:31 | PDOC.CMPRO ---
- If Service Date Differs Date of service: 10/14/21 Time of Service: 16:31 Care Management Progress Note S/O: Shu is 1 day s/p open cholecystectomy with Dr. Basurto. She continues to receive IV abx and pain medication. She has been up ambulating. CM will continue to follow to determine discharge plans post surgically. A: 50 year old female admitted to [facility] on 10/04/21 for Acute gallstone pancreatitis P: Shu is being followed by surgery. Anticipate Shu will discharge home when medically ready and follow up with [facility] and community providers. She may benefit from New VNA SN/PT services. She will transport with family. CM will continue to support discharge planning needs.
[2021-10-14] MEDS: Pantoprazole 40 MG VIAL IVP (18:37)
--- NOTE | 2021-10-14 19:59 | NUR.NOTE ---
no iv fluids going at this time previous nurse reported that patient wanted a break from the fluid
[2021-10-15] VITALS: BP 104/68; PULSE 78; RESP 18; TEMP 37.6; O2SAT 96
[2021-10-15] MEDS: Ketorolac 15 MG/ML VIAL IVP ×4 (00:40→18:10)
[2021-10-15] MEDS: ACETAMINOPHEN 1,000 MG/100 ML BTL 400 MG IVPB (04:50)
[2021-10-15] MEDS: Normal Saline Flush 10 ML SYR IVP ×4 (06:41→20:22)
[2021-10-15 07:53] VITALS: BP 115/71; PULSE 68; RESP 17; TEMP 36.8; O2SAT 99
[2021-10-15] MEDS: Lactobacillus Acidophilus CAP 1 CAP PO (08:47)
[2021-10-15] MEDS: metroNIDAZOLE 500 MG/100 ML BAG 100 MG IVPB ×2 (08:48→17:34)
--- NOTE | 2021-10-15 10:03 | PDOC.CMPRO ---
- If Service Date Differs Date of service: 10/15/21 Time of Service: 10:03 Care Management Progress Note S/O: Shu was sitting up on the side of her bed when CM met with her. She is tolerating her diet well and ate [place] toast this morning. Her pain has been well controlled with Acetaminophen. Mita is day #2 s/p open cholecystectomy with Dr. Basurto. She continues to receive IV abx. She has been up ambulating. CM will continue to support discharge planning needs. A: 50 year old female admitted to [facility] on 10/04/21 for Acute gallstone pancreatitis P: Shu is being followed by surgery. Anticipate Shu will discharge home with no new VNA services when medically ready. She will transport with family. She will need outpatient follow up appointments with [facility] [place], PCP and surgery (Dr. Basurto). CM will continue to support discharge planning needs.
--- NOTE | 2021-10-15 10:16 | W.PM.PROGNOT ---
Documented by User: [email or web address] Griffin 10/15/21 10:29 Date of Service Date of service: 10/15/21 Time of Service: 07:02 Assessment and Plan Assessment and plan (1) S/P cholecystectomy: Status: Acute (2) Acute gallstone pancreatitis: Status: Acute Assessment and plan: POD #2 s/p open cholecystectomy with Dr. Basurto DIET- Low fat diet PAIN- Well controlled at this time. Discussed that activity may cause some discomfort. Pulmonary toilet Strongly encouraged activity OOB, ambulation and sitting in the chair. ERVIN dressing in place and working well NAOMI drain with serosanginous fluid. This does not appear to be bile. Continue IV antibiotics P// Pain control, increase activity as tolerated. (3) Hyperbilirubinemia: Status: Resolved (4) Choledocholithiasis with chronic cholecystitis: Status: Acute Subjective Subjective Interval history since last seen: Patient reports she is feeling well, but tired today. She is eager to be d/c home. Exam Const General: cooperative, healthy appearing and comfortable Orientation: alert and oriented x3 Resp Effort & Inspection: normal respiratory effort, no audible wheezes and no cough GI Inspection: normal to inspection Other: ERVIN dressing in place NAOMI drain with very minimal serosanginous Objective Last Vital Signs Temp 36.8 C 10/15/21 07:53 Pulse 68 10/15/21 07:53 Resp 17 10/15/21 07:53 BP 115/71 10/15/21 07:53 Pulse Ox 99 10/15/21 07:53 Documented by User: Milvia Basurto DO 10/15/21 22:23 Assessment and Plan Assessment and plan (1) S/P cholecystectomy: Status: Acute Assessment and plan: pt does have some (2) Acute gallstone pancreatitis: Status: Acute Assessment and plan: POD #2 s/p open cholecystectomy with Dr. Sb SANTIAGO- Low fat diet PAIN- Well controlled at this time. Discussed that activity may cause some discomfort. Pulmonary toilet Strongly encouraged activity OOB, ambulation and sitting in the chair. ERVIN dressing in place and working well NAOMI drain with serosanginous fluid. This does appear to be bile-but it is less than 20 cc shift. She already has a stent in her common bile duct. It is probably a bile canaliculi that has not spasm down. This will reabsorb on its own Continue IV antibiotics P// Pain control, increase activity as tolerated. (3) Hyperbilirubinemia: Status: Resolved (4) Choledocholithiasis with chronic cholecystitis: Status: Acute
[2021-10-15] MEDS: Acetaminophen 500 MG TAB 1000 MG PO ×2 (11:24→19:41)
[2021-10-15] MEDS: Magnesium Citrate 300 ML BTL 150 ML PO (14:25)
[2021-10-15 15:18] VITALS: BP 111/68; PULSE 69; RESP 14; TEMP 37.5; O2SAT 98
[2021-10-15] MEDS: cefTRIAXone 1 GM/50 ML BAG IVPB (16:44)
[2021-10-15] MEDS: Pantoprazole 40 MG VIAL IVP (18:17)
[2021-10-15] MEDS: IRON SUCROSE COMPLEX 200 MG in Normal Saline 100 ML 400 MG IVPB (20:15)
[2021-10-16] MEDS: metroNIDAZOLE 500 MG/100 ML BAG 100 MG IVPB ×2 (00:37→08:14)
[2021-10-16] MEDS: Normal Saline Flush 10 ML SYR IVP ×4 (00:40→11:56)
[2021-10-16] MEDS: Ketorolac 15 MG/ML VIAL IVP ×3 (00:42→11:56)
[2021-10-16] MEDS: Acetaminophen 500 MG TAB 1000 MG PO ×2 (00:43→08:14)
[2021-10-16 00:55] VITALS: BP 111/73; PULSE 62; RESP 18; TEMP 36.6; O2SAT 97
[2021-10-16 07:46] VITALS: BP 105/61; PULSE 63; RESP 14; TEMP 36.5; O2SAT 98
--- NOTE | 2021-10-16 10:31 | PDOC.CMPRO ---
- If Service Date Differs Date of service: 10/16/21 Time of Service: 10:31 Care Management Progress Note S/O: Shu was sitting up on the side of her bed when CM met with her. Mita is day #3 s/p open cholecystectomy with Dr. Basurto. She has been up ambulating. Per surgeon, Bilirubin levels are pending and may remove drain and discharge home tomorrow if negative. CM will continue to support discharge planning needs. A: 50 year old female admitted to [facility] on 10/04/21 for Acute gallstone pancreatitis P: Shu is being followed by surgery. Anticipate Shu will discharge home with no new VNA services when medically ready. She will transport with family. She will need outpatient follow up appointments with [facility], PCP and surgery (Dr. Basurto). CM will continue to support discharge planning needs.
--- NOTE | 2021-10-16 14:52 | W.PM.PROGNOT ---
Date of Service Date of service: 10/16/21 Time of Service: 11:52 Assessment and Plan Assessment and plan (1) S/P cholecystectomy: Status: Acute (2) Acute gallstone pancreatitis: Status: Acute Assessment and plan: POD #3 s/p open cholecystectomy with Dr. Basurto -Continue low fat diet as tolerated -PO analgesics as ordered, IV analgesia discontinued in preparation for discharge -Encourage activity/ambulation and incentive spirometer use -Willl send fluid in drain for bilirubin level and consider removing tomorrow if negative, LFT's normalized so do not suspect true bile leak -d/c ABX -Dispo: possible discharge home tomorrow (3) Hyperbilirubinemia: Status: Resolved (4) Choledocholithiasis with chronic cholecystitis: Status: Acute Subjective Subjective Patient reports: no new complaints, feels better, tolerating a regular diet, voiding w/o difficulty and bowel movement Exam Const General: cooperative, healthy appearing, comfortable and no acute distress Nutritional Appearance: average body habitus HENMT Head: normal to inspection, normocephalic and atraumatic Eyes General: appearance normal, both eyes and all related structures Conjunctivae: conjunctivae normal Sclera: sclerae normal Resp Effort & Inspection: normal respiratory effort, able to speak in complete sentences, no audible wheezes, no cough and no respiratory distress Cardio Rate: regular rate Rhythm: regular rhythm GI Inspection: non-distended, incision and other (ERVIN dressing and drain in place, light bilious) Palpation: soft, no guarding and tender (appropriate post op discomfort) Percussion: normal to percussion Skin General skin exam: no rashes or lesions noted Extrem General: normal to inspection, full ROM and no edema Objective Last Vital Signs Temp 97.7 F 10/16/21 07:46 Pulse 63 10/16/21 07:46 Resp 14 10/16/21 07:46 BP 105/61 10/16/21 07:46 Pulse Ox 98 10/16/21 07:46
[2021-10-16 15:01] VITALS: BP 95/62; PULSE 70; RESP 15; TEMP 36.9; O2SAT 100
[2021-10-16] MEDS: Acetaminophen 500 MG TAB PO ×2 (15:53→22:11)
[2021-10-16] MEDS: Ketorolac 10 MG TAB PO (18:45)
[2021-10-16 20:41] VITALS: BP 97/62; PULSE 82; RESP 16; TEMP 36.9; O2SAT 98
[2021-10-17] MEDS: Ketorolac 10 MG TAB PO ×3 (04:16→17:53)
[2021-10-17 06:49] VITALS: BP 102/67; PULSE 68; RESP 18; TEMP 36.6; O2SAT 98
[2021-10-17] MEDS: Acetaminophen 500 MG TAB PO ×3 (08:26→20:31)
--- NOTE | 2021-10-17 11:07 | PDOC.CMDIS ---
- If Service Date Differs Date of service: 10/17/21 Time of Service: 11:07 LACE Index Scoring Tool - Questions: Length of Stay (in days): 7 - 13 Acuity (Admit via E.D.?): Yes E.D. Visits: 1 - Answers: Total Score: 9 Risk of Readmission: Low Risk Care Management Discharge Reason for Hospitalization: Gallstone Pancreatitis Discharge Plan: Shu is being followed by surgery. Anticipate Shu will discharge home with no new VNA services when medically ready. She will transport with family. She will need outpatient follow up appointments with [facility] [place], PCP and surgery (Dr. Basurto). CM will continue to support discharge planning needs. Patient/Family Education Needs: Review discharge instructions, discuss Ask Me Three.
[2021-10-17 15:12] VITALS: BP 110/70; PULSE 71; RESP 17; TEMP 36.4; O2SAT 100
--- NOTE | 2021-10-17 16:00 | W.PM.DS.N ---
Date of service: 10/17/21 Time of Service: 16:01 DS: Diagnosis Discharge Diagnosis (1) Acute gallstone pancreatitis: Status: Acute Asessment and Plan: -Resolved, now POD#3 s/p open cholecystectomy -D/c drain prior to discharge -Continue PO analgesics as written -Light activity x1 week, no lifting more than 10 lbs x 6 weeks -Incisional care discussed with patient -Call office to make follow up appointment in [address] Basurto -Low fat diet as tolerated (2) Hyperbilirubinemia: Status: Resolved (3) Choledocholithiasis with chronic cholecystitis: Status: Acute Discharge Plan Disposition Patient Disposition: HOME Condition: Stable Discharge Details Reason For Visit: Gallstone,Pancreatitis Admit Date/Time: 10/04/21 15:32 Admit Provider: Tammie Ferrell Attending Provider: Tammie Ferrell Primary Care Provider: [facility] Course Hospital Course: see addendum Home Meds and New Rx's Prescriptions: New ketorolac 10 mg Tablet 10 mg PO Q6H PRN PRN (Reason: Pain) Qty: 20 0RF Continued epinephrine [EpiPen 2-[place]] 0.3 mg/0.3 mL auto-injector 0.3 mg IM ONCE Qty: 1 2RF vitamin B complex 1 EACH capsule 1 cap PO DAILY 0RF calcium carbonate-vitamin D3 [Calcium 500 With D] 1 EACH tablet 2 tab PO DAILY 0RF acidophilus-pectin, citrus [Acidophilus Probiotic] 1 EACH capsule 1 cap PO DAILY 0RF Discharge Instructions Additional Instructions: -Follow-up with Dr. Basurto Sunday 10/22 @ 11:30am -Diet: low fat. See below -Don't strain to move bowels. Take Milk of Magnesia or Miralax as needed. -Keep wound clean and dry. Wash incision with soap and water daily. Pat dry, don't rub. You may find that your appetite is smaller. Eat 3-6 small meals throughout the day. It is important to drink lots of water after surgery, 6-10 glasses a day. 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 -We do want you up walking, at least 5-6 times per day. This is very important to prevent pneumonia and blood clots. You can climb stairs, take them slowly. -No lifting over 5 pounds. This is very important to avoid developing a hernia in your incision. -You may find that you are very tired after surgery- this is normal. -please do not smoke for a minimum of 72 hours after surgery. It's helpful to know a little background: The gallbladder collects bile, a fluid that is produced by the liver, and releases it when you eat to aid the breakdown and absorption of fat. Between meals, bile collects in the gallbladder and is concentrated. When the gallbladder is removed, bile is less concentrated and it drains continuously into the intestine. This affects digestion of fat and fat-soluble vitamins. How much of a problem it is varies from person to person. With time, the body often adjusts and becomes better at digesting fatty foods. ? The amount of fat eaten at one time also factors into the equation. Smaller amounts of fat are easier to digest. On the other hand, large amounts can remain undigested and cause gas, bloating and diarrhea. ? Eat smaller, more frequent meals. This may ensure a better mix with available bile. Include small amounts of lean protein, such as poultry, fish and nonfat dairy, at every meal, along with vegetables, fruit and whole grains. ? ? Go easy on fat. Avoid high-fat foods, fried and greasy foods, and fatty sauces and gravies. Instead, choose nonfat or low-fat foods. Read labels and look for foods with 3 grams of fat or less a serving. Foods to Avoid High-fat foods include: Pork & Dairy ? Foods that are fried, like [place] fries and potato chips ? High-fat meats, such as torres, bologna, sausage, ground beef, and ribs, pork products ? High-fat dairy products, such as cheese, ice cream, cream, whole milk, and sour cream ? Pizza ? Foods made with lard or butter ? Creamy soups or sauces ? Meat gravies ? Chocolate ? Oils, such as palm and coconut oil ? Skin of chicken or turkey ?? Nuts and nut butters ?? Avocadoes Stand Alone Forms: Nursing Discharge Form Referrals: Milvia Basurto DO [OSTEOPATHIC DOCTOR] - 10/22/21 11:30 am Activity:: see above Equipment/Supplies:: No Equipment Needed Diet:: see above Discharge Orders Discharge Orders: Discharge Order (Routine); Ordered 10/17/21 Ordered By: Tammie Ferrell DS: Summary Time Spent with Patient providing and/or coordinating discharge services: Less than 30 minutes Status at Discharge Functional status at discharge: independent ambulation Overall status at discharge: patient is progressing back to baseline Mental Status: mental status grossly normal Speech and Movement: speech and movement normal Mood: congruent mood Affect: normal affect Exam Const General: cooperative, healthy appearing, comfortable and no acute distress Nutritional Appearance: average body habitus [facility] Head: normal to inspection, normocephalic and atraumatic Eyes General: appearance normal, both eyes and all related structures Conjunctivae: conjunctivae normal Sclera: sclerae normal Resp Effort & Inspection: normal respiratory effort, able to speak in complete sentences, no audible wheezes, no cough and no respiratory distress Cardio Rate: regular rate Rhythm: regular rhythm GI Inspection: non-distended, incision and other (drain removed prior to discharge) Palpation: soft, no guarding and tender (appropriate post op discomfort) Percussion: normal to percussion Skin General skin exam: no rashes or lesions noted Extrem General: normal to inspection, full ROM and no edema Psych Mental Status: mental status grossly normal Speech and Movement: speech and movement normal Mood: congruent mood Affect: normal affect DS: Data Vitals/I&O Vitals and I&O: Vital Signs Temperature 97.5 F L 10/17/21 15:12 Temperature Source Tympanic 10/17/21 15:12 Pulse 71 10/17/21 15:12 Pulse Rhythm Regular 10/17/21 02:23 Respiratory Rate 17 10/17/21 15:12 Respiratory Effort Non-Labored 10/17/21 02:23 Respiratory Depth Normal 10/17/21 02:23 Respiratory Pattern Normal 10/17/21 02:23 Blood Pressure 110/70 10/17/21 15:12 Blood Pressure Position Sitting 10/04/21 12:56 Pulse Oximetry 100 10/17/21 15:12 Oxygen Delivery Method Room Air 10/17/21 15:12 Oxygen Flow Rate 0 10/17/21 15:12 Pain Level 3 10/17/21 13:41 Comment 10/13/21 17:15 Intake & Output 02/10/17/21 10/17/21 23:59 11:59 23:59 Intake Total 502 / 1582 372 / 372 Output Total 810 / 1430 1000 / 1700 700 / 1700 Balance -308 / 152 -628 / -1328 -700 / -1328 Intake: Oral 500 / 1360 370 / 370 Injectate Right Mid Anterior Abdomen Output: Drainage Right Mid Anterior Abdomen Urine 800 / 1400 1000 / 1700 700 / 1700 Other: Urine Color Pale Yellow Straw Yellow Urine Appearance Clear Clear Urine Odor None None Voiding Methods Toilet Toilet Toilet Data Completed and Pending Labs on day of discharge: Labs from last 24 hours 10/16/21 10/16/21 15:20 15:20 Fluid Type Pending Cancelled Fluid Tot Bilirubin Pending Cancelled PFSH All Active Problems (Updated 10/13/21 @ 22:00 by Milvia Basurto DO) S/P ERCP (Acute) Sphincterotomy and stent placement S/P cholecystectomy (Acute) Choledocholithiasis with chronic cholecystitis (Acute) Acute gallstone pancreatitis (Acute) Medical History (Updated 10/13/21 @ 22:00 by Milvia Basurto DO) Abnormal CT scan 09/2021- lytic lesion right acetabulum- needs MRI if not competed at [facility] Bone cyst of right femur Fatigue Greater trochanteric bursitis of right hip Iliotibial band syndrome of right side Surgical History (Updated 10/13/21 @ 22:00 by Milvia Basurto DO) Status post tonsillectomy and adenoidectomy Tonsillectomy and adenoidectomy (~1977) Family History Mother Essential hypertension Hodgkin's disease Father Essential hypertension Sister Essential hypertension Asthma Grandfather Essential hypertension Heart disease Hyperlipidemia Grandfather Stroke Grandmother Stroke Grandmother Diabetes Essential hypertension Heart disease Stroke Son No problems noted. Daughter No problems noted. FAMILY HISTORY Stroke Social History Smoking/Tobacco Use Status: Never Second Hand Exposure: Yes Smoking risk assessment performed?: Yes Alcohol Intake: never Drug use: Never Substance use type: does not use Do you feel safe at home: Yes Do you feel safe in your relationship?: Yes
[2021-10-17 20:32] VITALS: BP 96/54; PULSE 77; RESP 17; TEMP 36.7; O2SAT 99
[2021-10-18] MEDS: Ketorolac 10 MG TAB PO (06:21)
[2021-10-18 08:02] VITALS: BP 96/62; PULSE 66; RESP 14; TEMP 36.5; O2SAT 100
--- NOTE | 2021-10-18 09:52 | NUR.NOTE ---
Pharmacy did not receive RX yesterday. Texted Dr. Ferrell to clarify quantity of ketorolac to call in. Wants 20 tablets. RX called to [facility] in [place]. Pt informed.Nursing Note:
[2021-10-19 12:32] LABS: Bilirubin, BF 1.1 mg/dL
== END 2021-10-18 09:37 | disposition home or self-care (01) | DRG 415 ==
LOC: ER 15:46 → MS 16:30
PROVIDERS: Surgery; Admitting Provider Surgery; Emergency Provider Physician Assistant; PCP Nurse Practitioner; Visit Provider Surgery
PROC: 0FT44ZZ Resection of Gallbladder, Percutaneous Endoscopic Approach (ICD-10-PCS; CPT 47563; principal; 2021-10-13 11:15)
DX: K85.10 Biliary acute pancreatitis without necrosis or infection (principal); K80.66 Calculus of gallbladder and bile duct with acute and chronic cholecystitis without obstruction; R17 Unspecified jaundice; Z53.31 Laparoscopic surgical procedure converted to open procedure; K82.8 Other specified diseases of gallbladder; E80.6 Other disorders of bilirubin metabolism; M85.48 Solitary bone cyst, other site
CPT/HCPCS: 47600; 58662; 36415; 80048; 80053; 80076; 81025; 83690; 86704; 86709; 86803; 86850; 86900; 86901; 87340; 87635; 96365; 96367; 99291; 73723; 74177; 74181; 76705; 81003; 81015; 82247; 83735; 85025; 85610; 88304; J0131; J0696; J1100; J1200; J1756; J1885; J2001; J2270; J2370; J2405; J2704; J3475; J3490

== ENCOUNTER 2021-10-12 01:40 | Outpatient (CLI) | payer BC, SELFPAY | END 2021-10-12 01:41 | disposition home or self-care (01) | LOC: LBO 01:40 | PROVIDERS: PCP Nurse Practitioner; Visit Provider Surgery ==

== ENCOUNTER 2022-03-09 10:43 | Outpatient (CLI) | payer BC, SELFPAY ==
--- NOTE | 2022-03-09 10:30 | DI.RAD_ITS ---
Exam(s) XR HIP RT COMPLETE AP PELVIS EXAM: XR HIP RT COMPLETE AP PELVIS CLINICAL HISTORY: right hip pain. TECHNIQUE: 2D digital imaging was performed of the right hip. Images were obtained. AP pelvis and lateral right hip views were obtained. COMPARISON: CT CT ABDOMEN PELVIS W from 10/04/2021 FINDINGS: BONES: No acute fracture is present. No bony destructive lesion is seen. There is a stable large well -circumscribed cystic structure in the superior right acetabulum. There is a stable bone island in t he right iliac bone. There is a stable left iliac bone bone island. JOINTS: No dislocation present. There is mild narrowing of the superior right hip joint space. SOFT TISSUE: Normal. IMPRESSION: 1. Stable large right superior acetabular cyst. 2. Mild narrowing of the superior right hip joint space. DATA REPOSITORY: RADIATION DOSE DELIVERED:
== END 2022-03-09 10:44 | disposition home or self-care (01) ==
LOC: DIORS 10:43
PROVIDERS: PCP Nurse Practitioner; Referring Provider Nurse Practitioner; Visit Provider Student in an Organized Health Care Education/Training Program
DX: M85.68 Other cyst of bone, other site (principal)
CPT/HCPCS: 73502